=== PATIENT | male | born 1935 | race Caucasian/White ===

== ENCOUNTER 2019-04-18 20:10 | Emergency (ER) | payer MEDICARE, SELFPAY ==
--- NOTE | 2019-04-18 20:04 | DI.CT.S_ITS ---
PROCEDURE: CT HEAD/BRAIN WO CON INDICATIONS: code stroke/TPA CANDIDATE TECHNIQUE: Noncontrast 4.5 mm thick angled axial sections acquired from the foramen magnum to the vertex, with coronal and sagittal reformats. For radiation dose reduction, the following was used: automated exposure control, adjustment of mA and/or kV according to patient size. COMPARISON: None. FINDINGS: Image quality: Excellent. CSF spaces: Basal cisterns are patent. No extra-axial fluid collections. The ventricles are symmetric in size and shape. Brain: No intracranial bleeds or masses. There is cerebral volume loss for age, with resultant ventricular and sulcal prominence. There are periventricular and deep white matter chronic small vessel ischemic changes. There is intracranial internal carotid artery atherosclerosis. Skull and face: Calvarium and visualized facial bones appear intact, without suspicious lesions. Sinuses: Visualized sinuses and mastoids are clear. IMPRESSION: No acute intracranial process. Findings were personally telephoned and discussed with Dr. Berry in the emergency department at 04/18/19 2021 hours. Dictated by: Mikey Barth M.D. on 04/18/2019 at 20:19 Approved by: Mikey Barth M.D. on 04/18/2019 at 20:21
--- NOTE | 2019-04-18 20:07 | DI.CT.S_ITS ---
PROCEDURE: CT ANGIO HEAD AND NECK INDICATIONS: Code Stroke, TPA candidate TECHNIQUE: Pre-contrast 4.5 mm thick sections acquired from the foramen magnum to the vertex. After the administration of intravenous contrast, 1 mm thick sections acquired from the aortic arch through the [place] of [place]. Post-contrast 4.5 mm thick sections then re-acquired from the foramen magnum to the vertex. 3-dimensional jzxgaqs-nisepzcxk-kpahdhyije (MIP) and/or volume rendering reformats were acquired of the central intracranial vasculature and neck separately. COMPARISON: None. FINDINGS: Image quality: Excellent. BRAIN: CSF spaces: Ventricles are normal in size and shape. Basal cisterns are patent. No extra-axial fluid collections. Brain: No midline shift. No intracranial bleeds or masses. Whiting-white matter interface appears intact. Skull and face: Calvarium and facial bones appear intact, without suspicious lesions. Orbits appear normal. Sinuses: Mild right maxillary sinus disease. HEAD CT ANGIOGRAPHY: Anterior circulation: Intracranial internal carotid arteries are normal in size and flow. There is atresia or occlusion of the left A1 segment. The flow within the paired anterior cerebral arteries is normal and symmetric, and supplied by the right A1 segment. The flow within the middle cerebral arteries is normal and symmetric. . 2 mm outpouching is seen at the distal M1 segment, image [id number] series 4 raising possibility of small aneurysm (versus prominent infundibulum) Posterior circulation: There is a dominant left vertebral artery, with hypoplastic/diffusely narrowed appearance of the right vertebral artery. Normal appearing basilar artery. Flow within the posterior cerebral arteries is normal and symmetric. No aneurysms are seen. NECK CT ANGIOGRAPHY: Carotid system: The great vessels demonstrate a bovine anatomy as they arise from the aortic arch. The origins of the common carotid arteries appear patent. The common carotid arteries demonstrate normal caliber and courses. The bifurcation regions are both widely patent. Bilateral carotid calcifications are seen however no definite focal stenosis greater than 50% identified. Posterior circulation: The origins of the vertebral arteries both appear widely patent. The more superior extracranial portions of both vertebral arteries also demonstrate normal courses and calibers. They join to form a normal appearing basilar artery. Soft tissues: Visualized neck soft tissues demonstrate no suspicious abnormalities. Bones: No suspicious bony lesions. Visualized cervical spine appears normally aligned. IMPRESSION: Occluded or atretic left A1 segment. 2 mm outpouching off the distal left M1 segment, suggesting small aneurysm. Bilateral carotid calcifications. No hemodynamically significant ICA stenosis. Dominant left vertebral artery Any quantitative measurements of stenosis were performed using NASCET criteria. Dictated by: Mikey Barth M.D. on 04/18/2019 at 20:33 Approved by: Mikey Barth M.D. on 04/18/2019 at 20:45
[2019-04-18 20:26] LABS: Add Manual Diff / Slide Review NO; Basophils Absolute Auto 0 /uL (0-100); Basophils Percent Auto 0.8 % (0-2); Eosinophils Absolute Auto 200 /uL (0-450); Eosinophils Percent Auto 2.8 % (2-4); Hematocrit 43.4 % (41-53); Hemoglobin 14.7 g/dL (13.5-17.5); Lymphocytes Absolute Auto 1600 /uL (1100-4500); Lymphocytes Percent Auto 27.2 % (25-40); Mean Corpuscular Hemoglobin 31.1 PG (26-34); Mean Corpuscular Volume 91.6 fL (80-100); Monocytes Absolute Auto 400 /uL (0-900); Monocytes Percent Auto 7.2 % (3-14); Neutrophils Absolute Auto 3600 /uL (1500-7000); Platelet Count 147 X10^3/uL (150-400); Red Blood Cell Count 4.73 X10^6/uL (4.5-5.9); Red Cell Distribution Width 14.3 % (11.6-14.8); White Blood Cell Count 5.9 X10^3/uL (4.5-11.0)
--- NOTE | 2019-04-18 20:28 | ED_ITS ---
HPI - General Adult General Chief complaint: Neuro Symptoms/Deficit Stated complaint: Code Stroke Time Seen by Provider: 04/18/19 20:27 Source: patient, family and EMS Mode of arrival: EMS Limitations: no limitations History of Present Illness HPI narrative: Patient is an 83-year-old male. Otherwise healthy. Patient's son states that approximately 6:45-7 o'clock this evening was last known normal. They stated that the patient walked in from outside to have dinner when he had a fairly sudden onset of slurring his words, confusion and difficulty using his utensils. There is some reports that potentially his slurring of his words has improved. Patient without a history of stroke in the past. Takes a baby aspirin but no other medications. Blood sugar greater than 100 EMS prior to arrival. Related Data Allergies Allergy/AdvReac Type Severity Reaction Status Date / Time No Known Drug Allergies Allergy Verified 04/18/19 20:36 Review of Systems Constitutional Reports headache(s) (Right-sided) Eyes Denies diplopia ENT Ears, Nose, Mouth, and Throat: Reports headache(s) (Right-sided) Comments: Slurring of words Cardiovascular Denies chest pain, Denies palpitations and Denies dyspnea Respiratory Denies dyspnea Gastrointestinal Gastrointestinal: Denies abdominal pain, Denies nausea and Denies vomiting Genitourinary Denies dysuria Musculoskeletal Denies myalgias and Denies arthralgias Integumentary/Breasts Denies rash Neurologic Reports behavioral changes and Reports headache(s) (Right-sided) Psychiatric Reports behavioral changes Endocrine Denies palpitations Hematologic/Lymphatic Denies easy bleeding and Denies easy bruising Allergic/Immunologic Denies urticaria [facility] Medical History Patient denies medical problems (Acute) Social History Smoking Status: Never smoker Social History Smoking Status: Never smoker Exam Initial Vital Signs Initial Vital Signs: Vital Signs Temperature 98.0 F 04/18/19 20:36 Pulse Rate 66 04/18/19 20:36 Respiratory Rate 18 04/18/19 20:36 Blood Pressure 170/75 H 04/18/19 20:36 Pulse Oximetry 97 04/18/19 20:36 Const General: comfortable, well developed, well groomed and No acute distress Orientation: alert, awake, oriented to person, oriented to place and oriented to time HENDC Head: normal to inspection and normocephalic Nose: external nose normal Face and sinus: normal facial exam Mouth: oral mucosae normal Eyes Pupils: PERRL EOM: EOM intact bilaterally (However some difficulty looking to the left) Resp Effort & Inspection: normal respiratory effort Auscultation: clear to auscultation bilaterally Cardio Rate: regular rate Rhythm: regular rhythm Pulses: radial pulses present GI Inspection: non-distended Palpation: soft, No firm and No tender Skin Lesions: no lesions Rashes: no rashes Neuro General: alert and awake Cranial Nerves: CN's II-XI intact bilaterally Cognition: normal cognition Motor: muscle tone normal throughout Sensory Exam: other (Decreased sensation to the left) Extrem General: normal to inspection and capillary refill normal Psych Appearance: grossly normal and well kempt Scores GCS Blanca coma scale eye opening: Spontaneous Blanca coma scale verbal response: Orientated Blanca coma scale motor response: Obey commands Blanca coma scale total score: 15 NIH Stroke Scale Level of Conciousness: Alert, keenly responsive Ask month/age: Answers both questions correctly. 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) Best language: No aphasia, normal Dysarthria: Mild to mod,some slurring Extinction or inattention: Visual, tactile, auditory, spacial or personal in attention to stimuli Total NIH Stroke scale score: 7 Course Orders Ordered: ED Orders 04/18/19 20:04 CT head/brain wo con Stat EKG-12 Lead Stat 04/18/19 20:05 Complete Blood Count AUTO DIFF Stat Comprehensive Metabolic Panel Stat Ethanol (ETOH) Stat Lipase Stat Partial Thromboplastin Time Stat Prothrombin Time INR Stat Thyroid Stimulating Hormone Stat Troponin I Stat 04/18/19 20:07 CT angio head and neck Stat Discontinued Medications Alteplase, Recombinant (Activase) 86.8 mg IV NOW ONE Stop: 04/18/19 21:16 Last Admin: 04/18/19 21:10 Dose: 86.8 mg Vital Signs - 8 hr 04/18/19 20:36 04/18/19 21:38 04/18/19 21:47 Temperature 98.0 F Pulse Rate 66 58 L 62 Respiratory Rate 18 20 Blood Pressure 170/75 H Blood Pressure [Left Arm] 132/79 149/75 H Pulse Oximetry 97 96 95 Medical Decision Making Lab Data Lab results reviewed: Yes I reviewed the patient's lab results. Result diagrams: 04/18/19 20:05 04/18/19 20:05 Lab Results 04/18/19 04/18/19 04/18/19 Range/Units 20:05 20:05 20:05 WBC 5.9 (4.5-11.0) X10^3/uL RBC 4.73 (4.5-5.9) X10^6/uL Hgb 14.7 (13.5-17.5) g/dL Hct 43.4 (41-53) % MCV 91.6 (80-100) fL MCH 31.1 (26-34) PG MCHC 34.0 (30-36) % RDW 14.3 (11.6-14.8) % Plt Count 147 L (150-400) X10^3/uL Neut % (Auto) 62.0 (50-75) % Lymph % (Auto) 27.2 (25-40) % [place] % (Auto) 7.2 (3-14) % Eos % (Auto) 2.8 (2-4) % Baso % (Auto) 0.8 (0-2) % Neut # (Auto) 3600 (8585-9570) /uL Lymph # (Auto) 1600 (5860-3904) /uL [place] # (Auto) 400 (0-900) /uL Eos # (Auto) 200 (0-450) /uL Baso # (Auto) 0 (0-100) /uL PT 12.3 (10.1-12.7) SECONDS INR 1.1 (0.9-1.3) APTT 30 (26.4-36.2) SECONDS Sodium 143 (137-145) mmol/L Potassium 4.2 (3.4-5.1) mmol/L Chloride 109 H (98-107) mmol/L Carbon Dioxide 26 (22-32) mmol/L BUN 19 (9-20) mg/dL Creatinine 0.90 (0.66-1.25) mg/dL Estimated GFR > 60.0 (>60) mL/min BUN/Creatinine Ratio 21.1 (6-22) Glucose 124 H (80-110) mg/dL Calcium 9.8 (8.4-10.2) mg/dL Total Bilirubin 1.4 H (0.2-1.3) mg/dL AST 25 (17-59) IU/L ALT 13 L (21-72) IU/L Alkaline Phosphatase 63 (38-126) U/L Troponin I < 0.012 (0.01-0.034) ng/mL Total Protein 7.0 (6.3-8.2) g/dL Albumin 4.2 (3.5-5.0) g/dL Globulin 2.8 (1.7-4.1) g/dL Albumin/Globulin Ratio 1.5 (1.0-2.8) Lipase 118 (23-300) U/L TSH (0.47-4.68) uIU/mL Ethyl Alcohol < 10 mg/dL 04/18/19 Range/Units 20:05 WBC (4.5-11.0) X10^3/uL RBC (4.5-5.9) X10^6/uL Hgb (13.5-17.5) g/dL Hct (41-53) % MCV (80-100) fL MCH (26-34) PG MCHC (30-36) % RDW (11.6-14.8) % Plt Count (150-400) X10^3/uL Neut % (Auto) (50-75) % Lymph % (Auto) (25-40) % [place] % (Auto) (3-14) % Eos % (Auto) (2-4) % Baso % (Auto) (0-2) % Neut # (Auto) (5340-9076) /uL Lymph # (Auto) (1468-5156) /uL [place] # (Auto) (0-900) /uL Eos # (Auto) (0-450) /uL Baso # (Auto) (0-100) /uL PT (10.1-12.7) SECONDS INR (0.9-1.3) APTT (26.4-36.2) SECONDS Sodium (137-145) mmol/L Potassium (3.4-5.1) mmol/L Chloride (98-107) mmol/L Carbon Dioxide (22-32) mmol/L BUN (9-20) mg/dL Creatinine (0.66-1.25) mg/dL Estimated GFR (>60) mL/min BUN/Creatinine Ratio (6-22) Glucose (80-110) mg/dL Calcium (8.4-10.2) mg/dL Total Bilirubin (0.2-1.3) mg/dL AST (17-59) IU/L ALT (21-72) IU/L Alkaline Phosphatase (38-126) U/L Troponin I (0.01-0.034) ng/mL Total Protein (6.3-8.2) g/dL Albumin (3.5-5.0) g/dL Globulin (1.7-4.1) g/dL Albumin/Globulin Ratio (1.0-2.8) Lipase (23-300) U/L TSH 2.05 (0.47-4.68) uIU/mL Ethyl Alcohol mg/dL Imaging Data CT scan - head: Radiologist's impression: [place] [address] CT Scan Report Signed Patient: Yayo Novoa#: [id number] : 4Acct:[id number] Age/Sex: 83 / MDate of Service: 04/18/19 Loc: ED Accession Number: [id number] Procedure: CT head/brain wo con Ordering Provider: Jose Berry D.O. PROCEDURE: CT HEAD/BRAIN WO CON INDICATIONS: code stroke/TPA CANDIDATE TECHNIQUE: Noncontrast 4.5 mm thick angled axial sections acquired from the foramen magnum to the vertex, with coronal and sagittal reformats. For radiation dose reduction, the following was used: automated exposure control, adjustment of mA and/or kV according to patient size. COMPARISON: None. FINDINGS: Image quality: Excellent. CSF spaces: Basal cisterns are patent. No extra-axial fluid collections. The ventricles are symmetric in size and shape. Brain: No intracranial bleeds or masses. There is cerebral volume loss for age, with resultant ventricular and sulcal prominence. There are periventricular and deep white matter chronic small vessel ischemic changes. There is intracranial internal carotid artery atherosclerosis. Skull and face: Calvarium and visualized facial bones appear intact, without suspicious lesions. Sinuses: Visualized sinuses and mastoids are clear. IMPRESSION: No acute intracranial process. Findings were personally telephoned and discussed with Dr. Berry in the emergency department at 04/18/19 2021 hours. Dictated by: Mikey Barth M.D. on 04/18/2019 at 20:19 Approved by: Mikey Barth M.D. on 04/18/2019 at 20:21 CTA head neck: Radiologist's impression: [place] [address] CT Scan Report Signed Patient: Luis NovoaMR#: [id number] : 4Acct:[id number] Age/Sex: 83 / MDate of Service: 04/18/19 Loc: ED Accession Number: [id number] Procedure: CT angio head and neck Ordering Provider: Jose Berry D.O. PROCEDURE: CT ANGIO HEAD AND NECK INDICATIONS: Code Stroke, TPA candidate TECHNIQUE: Pre-contrast 4.5 mm thick sections acquired from the foramen magnum to the vert ex. After the administration of intravenous contrast, 1 mm thick sections acquired from the aortic arch through the [place] of [place]. Post-contrast 4.5 mm thick sections then re- acquired from the foramen magnum to the vertex. 3-dimensional ekqgvyb-jahbqvzih-etthjciaha (MIP) and/or volume rendering reformats were acquired of the central intracranial vasculature and neck separately. COMPARISON: None. FINDINGS: Image quality: Excellent. BRAIN: CSF spaces: Ventricles are normal in size and shape. Basal cisterns are patent. No extra-axial fluid collections. Brain: No midline shift. No intracranial bleeds or masses. Wh[place]-white matter interface appears intact. Skull and face: Calvarium and facial bones appear intact, without suspicious lesions. Orbits appear normal. Sinuses: Mild right maxillary sinus disease. HEAD CT ANGIOGRAPHY: Anterior circulation: Intracranial internal carotid arteries are normal in size and flow. There is atresia or occlusion of the left A1 segment. The flow within the paired anterior cerebral arteries is normal and symmetric, and supplied by the right A1 segment. The flow within the middle cerebral arteries is normal and symmetric. . 2 mm outpouching is seen at the distal M1 segment, image [id number] series 4 raising possibility of small aneurysm (versus prominent infundibulum) Posterior circulation: There is a dominant left vertebral artery, with hypoplastic/diffusely narrowed appearance of the right vertebral artery. Normal appearing basilar artery. Flow within the posterior cerebral arteries is normal and symmetric. No aneurysms are seen. NECK CT ANGIOGRAPHY: Carotid system: The great vessels demonstrate a bovine anatomy as they arise from the aortic arch. The origins of the common carotid arteries appear patent. The common carotid arteries demonstrate normal caliber and courses. The bifurcation regions are both widely patent. Bilateral carotid calcifications are seen however no definite focal stenosis greater than 50% identified. Posterior circulation: The origins of the vertebral arteries both appear widely patent. The more superior extracranial portions of both vertebral arteries also demonstrate normal courses and calibers. They join to form a normal appearing basilar artery. Soft tissues: Visualized neck soft tissues demonstrate no suspicious abnorma lities. Bones: No suspicious bony lesions. Visualized cervical spine appears normally aligned. IMPRESSION: Occluded or atretic left A1 segment. 2 mm outpouching off the distal left M1 segment, suggesting small aneurysm. Bilateral carotid calcifications. No hemodynamically significant ICA stenosis. Dominant left vertebral artery Any quantitative measurements of stenosis were performed using NASCET criteria. Dictated by: Mikey Barth M.D. on 04/18/2019 at 20:33 Approved by: Mikey Barth M.D. on 04/18/2019 at 20:45 ECG Data Attestation: I personally reviewed and interpreted this ECG as follows: Prior ECG tracings: not available for review Interpretation: Sinus rhythm Ventricular rate is 67 First degree AV block the as needed oval 236 milliseconds QRS duration 153 milliseconds Right bundle branch block Left anterior fascicular block Normal QTC No ST T wave changes MDM Narrative Medical decision making narrative: Patient arrived within 3 hours of a window of tPA. Does have a profound left-sided hemineglect. Patient does not have contraindication for tPA. I did discuss the case with with the stroke team at [facility] who reviewed the images. He evaluated the patient through the bedside video teleconference. He discuss risks and benefits with the tPA with the family who expressed understanding and agreement of this medication. Patient's blood pressure is within acceptable range. TPA was started. After review of the CT a doctor Indraman states that patient could be a potential candidate for retrieval. Airlift was initiated. Family informed of transport. Patient is stable for transport. Patient did improve somewhat after the tPA. Critical Care Time Critical Care Time: Yes Total Critical Care Time: 40 Attestation: The high probability of a clinically significant, sudden or life threatening deterioration of the neurologic system(s) required my full and direct attention, intervention and personal management. The aggregate critical care time was40 minutes. This time is in addition to time spent performing reported procedures but includes the following: [] Data Review and interpretation [] Patient assessment and monitoring of vital signs [] Documentation [] Medication orders and management Discharge Plan Departure Patient Disposition: [facility] Clinical Impression: Cerebrovascular accident Qualifiers: CVA mechanism: unspecified Qualified Code(s): I63.9 - Cerebral infarction, unspecified
[2019-04-18 20:34] LABS: INR 1.1 (0.9-1.3); Prothrombin Time 12.3 SECONDS (10.1-12.7)
[2019-04-18 20:36] VITALS: BP 170/75; PULSE 66; RESP 18; TEMP 36.7; O2SAT 97; BMI 28.5
[2019-04-18 20:36] LABS: PTT Partial Thromboplastin Tim 30 SECONDS (26.4-36.2)
[2019-04-18 20:41] LABS: Alanine Aminotransferase 13 IU/L (21-72); Albumin 4.2 g/dL (3.5-5.0); Albumin Globulin Ratio 1.5 (1.0-2.8); Alkaline Phosphatase 63 U/L (38-126); Aspartate Aminotransferase 25 IU/L (17-59); BUN Creatinine Ratio 21.1 (6-22); Bilirubin Total 1.4 mg/dL (0.2-1.3); Blood Urea Nitrogen 19 mg/dL (9-20); Calcium 9.8 mg/dL (8.4-10.2); Carbon Dioxide 26 mmol/L (22-32); Chloride 109 mmol/L (98-107); Estimated Glomerular Filt Rate > 60.0 mL/min (>60); Ethanol (ETOH) < 10 mg/dL; Globulin 2.8 g/dL (1.7-4.1); Glucose 124 mg/dL (80-110); HEMOLYSIS < 15 (0-50); Lipase 118 U/L (23-300); Potassium 4.2 mmol/L (3.4-5.1); Sodium 143 mmol/L (137-145)
[2019-04-18 20:52] LABS: Troponin I < 0.012 ng/mL (0.01-0.034)
--- NOTE | 2019-04-18 21:09 | PC.NURSE ---
per family patient has known left shoulder pain, pt using right hand to assist left arm up, pt then able to hold arm up without difficulty.
[2019-04-18] MEDS: ALTEPLASE 100 MG VIAL 86.8 MG IV (21:10)
[2019-04-18 21:12] LABS: Thyroid Stimulating Hormone 2.05 uIU/mL (0.47-4.68)
[2019-04-18 21:38] VITALS: BP 132/79; PULSE 58; RESP 19; O2SAT 96
[2019-04-18 21:47] VITALS: BP 149/75; PULSE 62; RESP 20; O2SAT 95
[2019-04-18 22:40] VITALS: BP 153/84; PULSE 59; RESP 18; O2SAT 94
== END 2019-04-18 22:43 | disposition short-term general hospital (02) ==
LOC: ED 21:23
PROVIDERS: Emergency Provider Emergency Medicine
DX: I63.9 Cerebral infarction, unspecified (principal)
CPT/HCPCS: 36591; 70450; 70496; 70498; 80053; 80320; 83690; 84443; 84484; 85025; 85610; 85730; 93005; 96374; 99283; 99285; J2997; Q9967

== ENCOUNTER 2019-07-04 10:30 | Outpatient (RCR) | payer MEDICARE, SELFPAY ==
--- NOTE | 2019-05-21 17:49 | ST.OPIE ---
Provider Information Visit Care Team Role Provider Type Marcie Canela MD Attending Provider Physician Primary Care Provider Specialty: Internal Medicine Address: [address] [place] [address], [id number] Email: Speech-Language Pathology Initial Evaluation SECURITY INCIDENT RESPONSE SPECIALIST Language Evaluation Start: 05/21/19 17:11 Freq: Status: Active Protocol: Document 05/16/19 17:11 JAQUELINE (Rec: 05/21/19 17:48 JAQUELINE [email or web address]) Language Evaluation Session Time Visit Start Time 12:30 Visit Stop Time 13:30 Total Visit Minutes 60 Visit Information Visit Number Initial Evaluation Plan of Care Dates 05/16/19 - 08/09/19 Insurance Information Medicare Next Note Type Next Note Type Treatment Note Referral Referring Physician Dr. 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 Initial symptoms included slurring of words, confusion and difficulty using utensils. The pt was at home with his family at the time of onset. Pt was brought to [facility] ED, where tPA was administered. The pt was then transported to [facility] in [place]. Dusty arrived for initial outpatient evaluation with his izdjqcst-[id number]-zom, Ashley. Both Dusty and Ashley provided supplemental case history and stated symptoms have improved but deficits continue to be apparent with left side neglect, WFD, tracking conversation of others, occasional use of language that is inappropriate to the context and/or pragmatically, incorrect syntax (particularly pronoun use), processing speeds, and inhibition. The pt c/o reduced energy levels. Ashley also noted observing mild emotional detatchment. She felt some of his deficits may be impacted his high frequency hearing loss, as well. 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 Both pt and DIL provided supplemental case history. The pt initially deferred to DIL to provide case history but then stated what he recalled when she prompted him to try. He recalled CVA and tests in the hospital (CT, MRI) and expressed difficulty speaking: You'll start and then it gets jumbled up. While provided history, the pt primarily looked/spoke to Ashley, who was sitting to his right, and did not look at the Clinician (at left) unless making a direct response the the Clinician. - Informal Assessment Receptive Language Normal No Expressive Language Normal No Articulation Normal Yes Assessment Findings Following chart review and interview, administration of the [place] Diagnostic Aphasia Examination was initiated and will be completed at the next session. The pt appears to present with mild to moderate expressive and receptive language deficits. Severity will be determined following completion of standardized assessment. The pt does exhibit occasional WFD, errors in syntax ( incorrect gender pronouns, overuse of past verb tense), and worsening of auditory and reading comprehension with increased length and complexity of content. Recommendations Skilled intervention is medically necessary to complete thorought evaluation and to improve the pt's expressive and receptive language skills in order to increase independence and participation in functional ADLs and communication. Formal Assessment Standardized Test [place] Diagnostic Aphasia Examination Administration Initiated Incomplete Results The following scores were obtained today: Fluency: Pharase Length 100% ile; Grammatic form 70%ile Auditory Comprehension: Basic Word Discrimnination 100%ile; Commands 70%ile; Complex Ideational Material 50%ile; Articulation: Articulatory Agility 70%ile; Recitation: Automatized Sequences 100%ile; Repetition: Words 60%ile; Sentences 60%ile; Naming: Responsive Naming 100% ile; [place] Naming Test 90%ile on short form (14/15 words; Long form = 52/60 words); Special Categories 100%ile; Readin%ile in Matching Cases & Scripts, Number Matching, Picture-Word Matching; Oral REading and Oral Sentence Comprehension; Oral Sentence reading 60%ile; Sentence/Paragtraph Comprehension 70%ile. - Receptive Language - Expressive Language - Treatment Goals Short Term Goals 1. The pt will participate in further evaluation of expressive and receptive language skills in order to guide POC. 2. The pt will complete word recall tasks of simple to moderate complexity with 80% accuracy to improve expressive language skills. 3. Using visual orientation tools as needed, the pt will complete scanning tasks with 80% accuracy to reduce left- side neglect, improve reading skills, and increase safety. Additional goals to be determined following completion of assessment. Engine Lathe Set Up Operator Tool Goals 1. Using word recall strategies as needed, the pt will exhibit fewer than 3 uncorrected paraphasias and/or WFD in a 3-minute conversation to improve expressive language skills. 2. The pt will demonstrate left-side attention adequate to complete scanning/reading aloud tasks without use of visual orientation tool and with 80% accuracy in order to improve visuospatial and reading skills and safety. Additional goals to be determined following completion of assessment.
--- NOTE | 2019-05-21 17:54 | ST.OPIE ---
Provider Information Visit Care Team Role Provider Type Marcie Canela MD Attending Provider Physician Primary Care Provider Specialty: Internal Medicine Address: [address] [place] [address], [id number] Email: Speech-Language Pathology Initial Evaluation POOL ATTENDANT Language Evaluation Start: 05/21/19 17:11 Freq: Status: Active Protocol: Document 05/16/19 17:11 JAQUELINE (Rec: 05/21/19 17:48 JAQUELINE [email or web address]) Language Evaluation Session Time Visit Start Time 12:30 Visit Stop Time 13:30 Total Visit Minutes 60 Visit Information Visit Number Initial Evaluation Plan of Care Dates 05/16/19 - 08/09/19 Insurance Information Medicare Next Note Type Next Note Type Treatment Note Referral Referring Physician Dr. 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 Initial symptoms included slurring of words, confusion and difficulty using utensils. The pt was at home with his family at the time of onset. Pt was brought to [facility] ED, where tPA was administered. The pt was then transported to [facility] in [place]. Dusty arrived for initial outpatient evaluation with his [id number], Ashley. Both Dusty and Ashley provided supplemental case history and stated symptoms have improved but deficits continue to be apparent with left side neglect, WFD, tracking conversation of others, occasional use of language that is inappropriate to the context and/or pragmatically, incorrect syntax (particularly pronoun use), processing speeds, and inhibition. The pt c/o reduced energy levels. Ashley also noted observing mild emotional detatchment. She felt some of his deficits may be impacted his high frequency hearing loss, as well. 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 Both pt and DIL provided supplemental case history. The pt initially deferred to DIL to provide case history but then stated what he recalled when she prompted him to try. He recalled CVA and tests in the hospital (CT, MRI) and expressed difficulty speaking: You'll start and then it gets jumbled up. While provided history, the pt primarily looked/spoke to Ashley, who was sitting to his right, and did not look at the Clinician (at left) unless making a direct response the the Clinician. - Informal Assessment Receptive Language Normal No Expressive Language Normal No Articulation Normal Yes Assessment Findings Following chart review and interview, administration of the [place] Diagnostic Aphasia Examination was initiated and will be completed at the next session. The pt appears to present with mild to moderate expressive and receptive language deficits. Severity will be determined following completion of standardized assessment. The pt does exhibit occasional WFD, errors in syntax ( incorrect gender pronouns, overuse of past verb tense), and worsening of auditory and reading comprehension with increased length and complexity of content. Recommendations Skilled intervention is medically necessary to complete thorought evaluation and to improve the pt's expressive and receptive language skills in order to increase independence and participation in functional ADLs and communication. Frequency and Duration: 1x/wk for 12 weeks Formal Assessment Standardized Test [place] Diagnostic Aphasia Examination Administration Initiated Incomplete Results The following scores were obtained today: Fluency: Pharase Length 100% ile; Grammatic form 70%ile Auditory Comprehension: Basic Word Discrimnination 100%ile; Commands 70%ile; Complex Ideational Material 50%ile; Articulation: Articulatory Agility 70%ile; Recitation: Automatized Sequences 100%ile; Repetition: Words 60%ile; Sentences 60%ile; Naming: Responsive Naming 100% ile; [place] Naming Test 90%ile on short form (14/15 words; Long form = 52/60 words); Special Categories 100%ile; Readin%ile in Matching Cases & Scripts, Number Matching, Picture-Word Matching; Oral REading and Oral Sentence Comprehension; Oral Sentence reading 60%ile; Sentence/Paragtraph Comprehension 70%ile. - Receptive Language - Expressive Language - Treatment Goals Short Term Goals 1. The pt will participate in further evaluation of expressive and receptive language skills in order to guide POC. 2. The pt will complete word recall tasks of simple to moderate complexity with 80% accuracy to improve expressive language skills. 3. Using visual orientation tools as needed, the pt will complete scanning tasks with 80% accuracy to reduce left- side neglect, improve reading skills, and increase safety. Additional goals to be determined following completion of assessment. [place] Goals 1. Using word recall strategies as needed, the pt will exhibit fewer than 3 uncorrected paraphasias and/or WFD in a 3-minute conversation to improve expressive language skills. 2. The pt will demonstrate left-side attention adequate to complete scanning/reading aloud tasks without use of visual orientation tool and with 80% accuracy in order to improve visuospatial and reading skills and safety. Additional goals to be determined following completion of assessment.
--- NOTE | 2019-05-29 16:41 | ST.OPTN ---
Care Team Visit Care Team Role Provider Type Marcie Canela MD Attending Provider Physician Primary Care Provider Address: [address] [place] [address], [id number] ACCOUNTS COLLECTOR Treatment Note ACCOUNTS COLLECTOR Treatment Note Start: 05/21/19 17:11 Freq: Status: Active Protocol: Document 05/22/19 15:06 JAQUELINE (Rec: 05/29/19 15:27 JAQUELINE [email or web address]) Speech Pathology Treatment Note Session Time Visit Start Time 10:30 Visit Stop Time 11:25 Total Visit Minutes 55 Visit Information Visit Number 11/10 Plan of Care Dates 05/16/19 - 08/09/19 Insurance Information Medicare Setting Treatment Setting Outpatient Care Visit Type Note Type Treatment Note Next Note Type Next Note Type Treatment Note General Information General Information This 83-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 Initial symptoms included slurring of words, confusion and difficulty using utensils. The pt was at home with his family at the time of onset. Pt was brought to [facility] ED, where tPA was administered. The pt was then transported to [facility] in [place]. Dusty arrived for initial outpatient evaluation with his gimywbwm-ra-kje, Ashley. Both Dusty and Ashley provided supplemental case history and stated symptoms have improved but deficits continue to be apparent with left side neglect, WFD, tracking conversation of others, occasional use of language that is inappropriate to the context and/or pragmatically, incorrect syntax (particularly pronoun use), processing speeds, and inhibition. The pt c/o reduced energy levels. Ashley also noted observing mild emotional detatchment. She felt some of his deficits may be impacted his high frequency hearing loss, as well. Subjective Observations/Patient Presentation Pt arrived early for his appt with son, Eric, accompanying him. 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 Since the stroke , the son has noticed changes in the pt's syntax with frequent pronoun errors or lack of referent, making conversation often confusing. He also reported reduced attention, particularly in conversation as demonstrated by the pt interrupting others' conversations. Changes in relationships has also been significant, in that the pt appears to be pushing loved ones away, and this is of great concern to the family. Eric stated that inhibition is improving and is ~20% from baseline and that the pt's awareness of his deficits is also starting to improve. Chief Complaint(s) Speech Language Cognitive Rehab Expectation/Goals: Patient Goals The pt expects that in time he will return to baseline. Objective Short Term Goals 1. The pt will participate in further evaluation of expressive and receptive language skills in order to guide POC. GOAL MET 2. The pt will complete word recall tasks of simple to moderate complexity with 80% accuracy to improve expressive language skills. 3. Using visual orientation tools as needed, the pt will complete scanning tasks with 80% accuracy to reduce left- side neglect, improve reading skills, and increase safety. 4. The pt will complete syntax tasks of moderate complexity (e.g., scrambled sentences, cloze exercises targeting pronouns, subjects, prepositions, etc.) with 80% accuracy to improve expressive language skills. 5. The pt will participate in assessment of mathematical skills with goals to be determined subsequently. Jail Goals 1. Using word recall strategies as needed, the pt will exhibit fewer than 3 uncorrected paraphasias and/or WFD in a 3-minute conversation to improve expressive language skills. 2. The pt will demonstrate left-side attention adequate to complete scanning/reading aloud tasks without use of visual orientation tool and with 80% accuracy in order to improve visuospatial and reading skills and safety. 3. Given picture stimuli, the pt will produce descriptive sentences orally and in writing with 80% correct syntax to improve expressive language skills and comprehensibility of speech. 4. The pt will complete math problems of moderate complexity (e.g., clock math, measurements, etc.) to increase ability to participate in functional activities and hobbies as per PLOF. Treatment Activities Completed administration of BDAE. Consulted with pt/son for further development of tx goals. Assessment Patient Response to Treatment Fair Rehab Potential Good Impairments Identified Aphasia Cognitive-Linguistic Skills Expressive Language Assessment of Improvement Pt achieved the following scores in BDAE Writing tasks: Form: 70%ile; Letter Choice 21 %ile; Motor Facility 20%ile ( secondary to right shoulder surgery ~20 yrs ago, not impacted by stroke); Primer Words 100%ile; Regular Phonics 100%ile; Common Irregular Words 100%ile; Written Picture Naming 70%ile (misspelling trelis for trellis); and Narrative Writing 75%ile. Narrative writing errors included incorrect pronoun x1, missing pronoun/subject x1, and absent punctuation. Reviewed with Patient Goals Progress Being Made Home Exercise Program Patient/Caregiver Understanding Good
--- NOTE | 2019-05-29 16:51 | ST.OPTN ---
Care Team Visit Care Team Role Provider Type Marcie Canela MD Attending Provider Physician Primary Care Provider Address: [address] [place] [address], [id number] PULPER Treatment Note PULPER Treatment Note Start: 05/21/19 17:11 Freq: Status: Active Protocol: Document 05/29/19 16:41 JAQUELINE (Rec: 05/29/19 16:51 JAQUELINE [email or web address]) Speech Pathology Treatment Note Session Time Visit Start Time 12:30 Visit Stop Time 13:15 Total Visit Minutes 45 Visit Information Visit Number 11/10 Plan of Care Dates 05/16/19 - 08/09/19 Insurance Information Medicare Setting Treatment Setting Outpatient Care Visit Type Note Type Treatment Note Next Note Type Next Note Type Treatment Note General Information General Information This 83-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 Initial symptoms included slurring of words, confusion and difficulty using utensils. The pt was at home with his family at the time of onset. Pt was brought to [facility] ED, where tPA was administered. The pt was then transported to [facility] in [place]. Dusty arrived for initial outpatient evaluation with his fsncallr-dl-cky, Ashley. Both Dusty and Ashley provided supplemental case history and stated symptoms have improved but deficits continue to be apparent with left side neglect, WFD, tracking conversation of others, occasional use of language that is inappropriate to the context and/or pragmatically, incorrect syntax (particularly pronoun use), processing speeds, and inhibition. The pt c/o reduced energy levels. Ashley also noted observing mild emotional detatchment. She felt some of his deficits may be impacted his high frequency hearing loss, as well. Subjective Observations/Patient Presentation Pt arrived 45 min early for his appt unaccompanied. Chief Complaint(s) Speech Language Cognitive Rehab Expectation/Goals: Patient Goals The pt expects that in time he will return to baseline. Objective Short Term Goals 1. The pt will participate in further evaluation of expressive and receptive language skills in order to guide POC. GOAL MET 2. The pt will complete word recall tasks of simple to moderate complexity with 80% accuracy to improve expressive language skills. 3. Using visual orientation tools as needed, the pt will complete scanning tasks with 80% accuracy to reduce left- side neglect, improve reading skills, and increase safety. 4. The pt will complete syntax tasks of moderate complexity (e.g., scrambled sentences, cloze exercises targeting pronouns, subjects, prepositions, etc.) with 80% accuracy to improve expressive language skills. 5. The pt will participate in assessment of mathematical skills with goals to be determined subsequently. Hand Pattern Marker Goals 1. Using word recall strategies as needed, the pt will exhibit fewer than 3 uncorrected paraphasias and/or WFD in a 3-minute conversation to improve expressive language skills. 2. The pt will demonstrate left-side attention adequate to complete scanning/reading aloud tasks without use of visual orientation tool and with 80% accuracy in order to improve visuospatial and reading skills and safety. 3. Given picture stimuli, the pt will produce descriptive sentences orally and in writing with 80% correct syntax to improve expressive language skills and comprehensibility of speech. 4. The pt will complete math problems of moderate complexity (e.g., clock math, measurements, etc.) to increase ability to participate in functional activities and hobbies as per PLOF. Treatment Activities Given scrambled sentences of 4 words, the pt reordered words with 78% accuracy. Given picture scene, the pt described persons in the picture using pronouns without referents in 2/6 opportunities. Initiated assessment of math skills using clock math. The pt performed exercises identifying and calculating time with 77% acc, min cues for understanding of written questions. The pt expressed and exhibited frustration with tasks and lack of understanding of how this is going to help me. He insisted that language and cognitive skills would improve with time and that at this rate, I will be coming here for years. Skilled feedback and education was provided and tasks altered as deemed appropriate by the Clinician to promote pt understanding and motivation to intervention . Assessment Patient Response to Treatment Fair Rehab Potential Good Impairments Identified Aphasia Cognitive-Linguistic Skills Expressive Language Assessment of Improvement The pt exhibited mild deficits in areas targeted in today's session, poor awareness of deficits, and significant frustration with treatment tasks and their purposes. He was not receptive to education and feedback. Recommend increasing complexity of tasks to increase awareness of deficits and tailor treatment to the pt's prior ability levels and interests to promote investment in rehabilitation. Reviewed with Patient Goals Progress Being Made Home Exercise Program Patient/Caregiver Understanding Good Plan Therapeutic Contents Client Education Cognitive-Linguistic Training Expressive Language Training Home Exercise Program Receptive Language Training Written Expression Provided Patient/Caregiver Instruction Home Exercise Program Plan of Care Questions/Concerns
--- NOTE | 2019-06-05 17:06 | ST.OPTN ---
Care Team Visit Care Team Role Provider Type Marcie Canela MD Attending Provider Physician Primary Care Provider Address: [address] [place] [address], [id number] UPHOLSTERY MECHANIC Treatment Note UPHOLSTERY MECHANIC Treatment Note Start: 05/21/19 17:11 Freq: Status: Active Protocol: Document 06/05/19 16:54 JAQUELINE (Rec: 06/05/19 17:05 JAQUELINE [id number]) Speech Pathology Treatment Note Session Time Visit Start Time 10:32 Visit Stop Time 11:35 Total Visit Minutes 63 Visit Information Visit Number 12/11 Plan of Care Dates 05/16/19 - 08/09/19 Insurance Information Medicare Setting Treatment Setting Outpatient Care Visit Type Note Type Treatment Note Next Note Type Next Note Type Treatment Note General Information General Information This 83-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 Initial symptoms included slurring of words, confusion and difficulty using utensils. The pt was at home with his family at the time of onset. Pt was brought to [facility] ED, where tPA was administered. The pt was then transported to [facility] in [place]. Dusty arrived for initial outpatient evaluation with his qbagstgc-sj-yim, Ashley. Both Dusty and Ashley provided supplemental case history and stated symptoms have improved but deficits continue to be apparent with left side neglect, WFD, tracking conversation of others, occasional use of language that is inappropriate to the context and/or pragmatically, incorrect syntax (particularly pronoun use), processing speeds, and inhibition. The pt c/o reduced energy levels. Ashley also noted observing mild emotional detatchment. She felt some of his deficits may be impacted his high frequency hearing loss, as well. Subjective Observations/Patient Presentation Pt arrived on time for his appt. He was unattended; however, his oteqqngn-dq-qvj arrived shortly after the start of the session and stayed throughout. Chief Complaint(s) Speech Language Cognitive Rehab Expectation/Goals: Patient Goals The pt expects that in time he will return to baseline. Objective Short Term Goals 1. The pt will participate in further evaluation of expressive and receptive language skills in order to guide POC. GOAL MET 2. The pt will complete word recall tasks of simple to moderate complexity with 80% accuracy to improve expressive language skills. 3. Using visual orientation tools as needed, the pt will complete scanning tasks with 80% accuracy to reduce left- side neglect, improve reading skills, and increase safety. 4. The pt will complete syntax tasks of moderate complexity (e.g., scrambled sentences, cloze exercises targeting pronouns, subjects, prepositions, etc.) with 80% accuracy to improve expressive language skills. 5. The pt will participate in assessment of mathematical skills with goals to be determined subsequently. Intermodal Dispatcher Goals 1. Using word recall strategies as needed, the pt will exhibit fewer than 3 uncorrected paraphasias and/or WFD in a 3-minute conversation to improve expressive language skills. 2. The pt will demonstrate left-side attention adequate to complete scanning/reading aloud tasks without use of visual orientation tool and with 80% accuracy in order to improve visuospatial and reading skills and safety. 3. Given picture stimuli, the pt will produce descriptive sentences orally and in writing with 80% correct syntax to improve expressive language skills and comprehensibility of speech. 4. The pt will complete math problems of moderate complexity (e.g., clock math, measurements, etc.) to increase ability to participate in functional activities and hobbies as per PLOF. Treatment Activities HEP package was provided to the pt with verbal instructions provided to pt/ family. Instructed pt in mathematical pattern recognition task. He completed with 100% accuracy, min-mod extended processing time, min verbal prompts. Initiated deductive reasoning task requiring mod-max prompts and cues. The pt read clues with 100% accuracy with no evidence of left-side neglect. He required multiple verbal prompts to complete simple tasks such as reading aloud or writing information in the grid. Based on the pt's facial expressions, heavy sighs and comments, this appeared to be more from resisitance to the task than from comprehension deficits. The task was not completed before end of session. The pt complained that it was too difficult and that he would be pushing up daisies before I could finish that. Skilled feedback was provided RE targets and goals of treatment, and his daughter -in-law provided encouragement , also. However, the pt expressed being frustrated and requested tx be reduced to 1x /mo. Family requested every other week, and it was finally decided to f/u in 3 wks. Pt's hvlokjtl-vy-ypn informed that reduced frequency at this time was desired by the family d/t lots of frustration going on these days. Assessment Patient Response to Treatment Fair Rehab Potential Good Impairments Identified Aphasia Cognitive-Linguistic Skills Expressive Language Assessment of Improvement The pt completed numerical reasoning tasks with good accuracy, given extended processing time. He was more engaged with this task than with verbal deductive reasoning, which increased frustration levels. Overall, the pt was resistant to feedback and exhibited minimal motivation to participate in skilled intervention, as demonstrated by signs and comments of frustration regaring specific tasks and cognitive rehabilitation in general. Will reduce frequency of visits and promote HEP with family; F/U in 3 wks. Reviewed with Patient Goals Progress Being Made Home Exercise Program Patient/Caregiver Understanding Good Plan Therapeutic Contents Client Education Cognitive-Linguistic Training Expressive Language Training Home Exercise Program Receptive Language Training Written Expression Provided Patient/Caregiver Instruction Home Exercise Program Plan of Care Questions/Concerns
--- NOTE | 2019-07-04 13:38 | ST.OPTN ---
Visit Care Team Role Provider Type Marcie Canela MD Attending Provider Physician Primary Care Provider Address: [address] [place] [address], [id number] CABIN SERVICE AGENT Treatment Note CABIN SERVICE AGENT Treatment Note Start: 05/21/19 17:11 Freq: Status: Active Protocol: Document 07/04/19 11:23 JAQUELINE (Rec: 07/04/19 11:33 JAQUELINE [email or web address]) Speech Pathology Treatment Note Session Time Visit Start Time 10:30 Visit Stop Time 11:15 Total Visit Minutes 45 Visit Information Visit Number 01/08 Plan of Care Dates 05/16/19 - 08/09/19 Insurance Information Medicare Setting Treatment Setting Outpatient Care Visit Type Note Type Treatment Note Next Note Type Next Note Type Treatment Note General Information General Information This 83-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 Initial symptoms included slurring of words, confusion and difficulty using utensils. The pt was at home with his family at the time of onset. Pt was brought to [facility] ED, where tPA was administered. The pt was then transported to [facility] in [place]. Dusty arrived for initial outpatient evaluation with his cgegyqgz-kl-asg, Ashley. Both Dusty and Ashley provided supplemental case history and stated symptoms have improved but deficits continue to be apparent with left side neglect, WFD, tracking conversation of others, occasional use of language that is inappropriate to the context and/or pragmatically, incorrect syntax (particularly pronoun use), processing speeds, and inhibition. The pt c/o reduced energy levels. Ashley also noted observing mild emotional detatchment. She felt some of his deficits may be impacted his high frequency hearing loss, as well. Subjective Observations/Patient Presentation Pt arrived on time for his appt, unaccompanied. He reported feeling that things seem a lot more normal and that he has re-engaged with activities for which he had lost motivation immediately after the stroke. He reported less frustration, some jumbled thoughts and words, which improved when he slowed down and gave himself time to think. He requested the Clinician call his son, Eric, and see what he thinks. He asked, So you can let me go? but was agreeable to participating in today's tasks and following up again in 3 wks. Chief Complaint(s) Speech,Language,Cognitive Rehab Expectation/Goals: Patient Goals The pt expects that in time he will return to baseline. Objective Short Term Goals 1. The pt will participate in further evaluation of expressive and receptive language skills in order to guide POC. GOAL MET 2. The pt will complete word recall tasks of simple to moderate complexity with 80% accuracy to improve expressive language skills. 3. Using visual orientation tools as needed, the pt will complete scanning tasks with 80% accuracy to reduce left- side neglect, improve reading skills, and increase safety. 4. The pt will complete syntax tasks of moderate complexity (e.g., scrambled sentences, cloze exercises targeting pronouns, subjects, prepositions, etc.) with 80% accuracy to improve expressive language skills. 5. The pt will participate in assessment of mathematical skills with goals to be determined subsequently. Retail Selling Specialist Goals 1. Using word recall strategies as needed, the pt will exhibit fewer than 3 uncorrected paraphasias and/or WFD in a 3-minute conversation to improve expressive language skills. 2. The pt will demonstrate left-side attention adequate to complete scanning/reading aloud tasks without use of visual orientation tool and with 80% accuracy in order to improve visuospatial and reading skills and safety. 3. Given picture stimuli, the pt will produce descriptive sentences orally and in writing with 80% correct syntax to improve expressive language skills and comprehensibility of speech. 4. The pt will complete math problems of moderate complexity (e.g., clock math, measurements, etc.) to increase ability to participate in functional activities and hobbies as per PLOF. Treatment Activities Scanning/Left Neglect: Pt read paragraphs and completed scanning tasks with materials placed left of center with 100 % acc. Basic mathematics: Simple addition, multiplication and division in isolation, 100% acc; simple subtraction in isolation, 90% acc. Mixed mathematics, 58% acc with 1 error self-corrected. Errors tended to be incorrect function (e.g., addition instead of multiplication) resulting from reduced attention vs reduced mathematical skills. Inferential reading with short paragraphs: 60% acc., mnod- max assist. Errors resulting both from reduced attention and reduced inferencing skills . Expressive Language: 1 incorrect word usage (He change (noticed) a big difference, too.) in conversation over course of tx session. Assessment Patient Response to Treatment Fair Rehab Potential Good Impairments Identified Aphasia,Cognitive-Linguistic Skills,Expressive Language Assessment of Improvement The pt demonstrates improved word recall/usage skills with only 1 error observed over the treatment session, and reduced frustration with and resistance to treatment tasks. Improved insight into and acceptance of deficits was also noted, as the pt acknowledged errors (either identified independently or by the clinician) and that reduced concentration/ attention was the primary factor leading to errors. Actual mathematic skills were WFL, as evidenced by increased accuracy when the pt used strategies (instructed by CABIN SERVICE AGENT) to slow down and increase attention to the task. No evidence of left side neglect was observed in structured scanning and unstructured tasks. Reading ability is WFL; however, inferred reading skills are reduced, which may represent deficits in abstract reasoning and/or mental flexibility. HEP tasks targeting inferential reading and attention skills were provided , and the pt was accepting of these. Although he continued to express a desire to be done with speech therapy, he was agreeable to following up in 3 weeks for ongoing assessment and skills training as needed. Reviewed with Patient Goals,Progress Being Made,Home Exercise Program Patient/Caregiver Understanding Good Plan Therapeutic Contents Client Education,Cognitive- Linguistic Training,Expressive Language Training,Home Exercise Program,Receptive Language Training,Written Expression Provided Patient/Caregiver Instruction Home Exercise Program,Plan of Care,Questions/Concerns Therapy Recommendations Continue with Current Program Comment Follow up in 3 wks.
--- NOTE | 2019-09-04 11:07 | ST.OPDS ---
Visit Care Team Role Provider Type Marcie Canela MD Attending Provider Physician Primary Care Provider Address: [address] [place] [address], [id number] GROUND DEFENCE OFFICER Treatment Note GROUND DEFENCE OFFICER Treatment Note Start: 05/21/19 17:11 Freq: Status: Active Protocol: Document 09/04/19 11:01 JAQUELINE (Rec: 09/04/19 11:07 JAQUELINE [email or web address]) Speech Pathology Treatment Note Visit Information Plan of Care Dates 05/16/19 - 08/09/19 Insurance Information Medicare Setting Treatment Setting Outpatient Care Visit Type Note Type Discharge Summary General Information General Information This 83-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 Initial symptoms included slurring of words, confusion and difficulty using utensils. The pt was at home with his family at the time of onset. Pt was brought to [facility] ED, where tPA was administered. The pt was then transported to [facility] in [place]. Dusty arrived for initial outpatient evaluation with his vczoedma-or-zzi, Ashley. Both Dusty and Ashley provided supplemental case history and stated symptoms have improved but deficits continue to be apparent with left side neglect, WFD, tracking conversation of others, occasional use of language that is inappropriate to the context and/or pragmatically, incorrect syntax (particularly pronoun use), processing speeds, and inhibition. The pt c/o reduced energy levels. Ashley also noted observing mild emotional detatchment. She felt some of his deficits may be impacted his high frequency hearing loss, as well. Subjective Observations/Patient Presentation Pt was last seen 07/04/19. One appointment since then was cancelled by the pt/family. Over course of treatment, the pt made progress toward goals and exhibited improvement in skills; however, not all goals were met. The pt will be discharged from skilled services at this time. Objective Short Term Goals 1. The pt will participate in further evaluation of expressive and receptive language skills in order to guide POC. GOAL MET 2. The pt will complete word recall tasks of simple to moderate complexity with 80% accuracy to improve expressive language skills. GOAL NOT MET 3. Using visual orientation tools as needed, the pt will complete scanning tasks with 80% accuracy to reduce left- side neglect, improve reading skills, and increase safety. GOAL NOT MET 4. The pt will complete syntax tasks of moderate complexity (e.g., scrambled sentences, cloze exercises targeting pronouns, subjects, prepositions, etc.) with 80% accuracy to improve expressive language skills. GOAL NOT MET 5. The pt will participate in assessment of mathematical skills with goals to be determined subsequently. ASSESSMENT COMPLETED. Head Setter Goals 1. Using word recall strategies as needed, the pt will exhibit fewer than 3 uncorrected paraphasias and/or WFD in a 3-minute conversation to improve expressive language skills. GOAL MET 2. The pt will demonstrate left-side attention adequate to complete scanning/reading aloud tasks without use of visual orientation tool and with 80% accuracy in order to improve visuospatial and reading skills and safety. GOAL NOT MET 3. Given picture stimuli, the pt will produce descriptive sentences orally and in writing with 80% correct syntax to improve expressive language skills and comprehensibility of speech. GOAL NOT MET 4. The pt will complete math problems of moderate complexity (e.g., clock math, measurements, etc.) to increase ability to participate in functional activities and hobbies as per PLOF. GOAL NOT MET Plan Therapy Recommendations Discharge from Speech Therapy Reason for Discharge Pt cancelled last appt and did not schedule further.
== END 2019-07-04 11:30 ==
LOC: SP 10:30
PROVIDERS: PCP Internal Medicine; Visit Provider Internal Medicine
DX: I63.9 Cerebral infarction, unspecified (principal)
CPT/HCPCS: 92507; 92523

== ENCOUNTER → 2019-07-31 06:54 | Outpatient (CLI) | payer MEDICARE, SELFPAY ==
[2019-07-31 09:06] LABS: Alanine Aminotransferase 19 IU/L (21-72); Aspartate Aminotransferase 27 IU/L (17-59); BUN Creatinine Ratio 23.8 (6-22); Blood Urea Nitrogen 19 mg/dL (9-20); Calcium 9.3 mg/dL (8.4-10.2); Carbon Dioxide 27 mmol/L (22-32); Chloride 108 mmol/L (98-107); Cholesterol 118 mg/dL (140-199); Estimated Glomerular Filt Rate > 60.0 mL/min (>60); Glucose 122 mg/dL (80-110); HDL Cholesterol 39 mg/dL (40-60); HEMOLYSIS < 15 (0-50); LDL Cholesterol Calculated 69 mg/dL (<100); Potassium 4.8 mmol/L (3.4-5.1); Sodium 143 mmol/L (137-145); Triglycerides 49 mg/dL (35-150)
[2019-07-31 09:32] LABS: Prostate Specific Antigen 2.66 ng/mL (0.10-4.00)
== END ==
PROVIDERS: PCP Internal Medicine; Visit Provider Internal Medicine
DX: I10 Essential (primary) hypertension (principal); E78.5 Hyperlipidemia, unspecified; Z12.5 Encounter for screening for malignant neoplasm of prostate
CPT/HCPCS: 36415; 80048; 80061; 84153; 84450; 84460; G0103

== ENCOUNTER → 2019-10-02 11:03 | Outpatient (CLI) | payer MEDICARE, SELFPAY ==
[2019-10-02 12:42] LABS: TSH w/ Reflex to FT4 1.74 uIU/mL (0.47-4.68)
[2019-10-02 13:13] LABS: Folate 7.8 ng/mL (2.76-20.0); Vitamin B12 489 pg/mL (239-931)
== END ==
PROVIDERS: PCP Internal Medicine; Visit Provider Psychiatry & Neurology Neurology
DX: R53.83 Other fatigue (principal)
CPT/HCPCS: 36415; 82607; 82746; 84443

== ENCOUNTER → 2019-10-26 08:32 | Outpatient (CLI) | payer MEDICARE, SELFPAY ==
[2019-10-26 09:26] LABS: Hemoglobin A1C% w Est Avg Glu 5.7 % (4.0-6.0)
[2019-10-26 09:37] LABS: Glucose 126 mg/dL (80-110)
== END ==
PROVIDERS: PCP Internal Medicine; Visit Provider Internal Medicine
DX: R73.01 Impaired fasting glucose (principal)
CPT/HCPCS: 36415; 82947; 83036

== ENCOUNTER → 2019-11-24 14:09 | Outpatient (CLI) | payer MEDICARE, SELFPAY ==
--- NOTE | 2019-11-24 15:56 | PM.TREADMILL ---
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 Impression: Near max effort ETT 05:51 min with good tolerance for age. Stress ECG showed sinus tach to [address] segment depressions or elevations and no cardiac ischemic symptoms. No increase in conduction delays or bundle blocks. Normal HR and BP responses to exercise. Max BP 170/70. His PVCs became more freq. and there were couplets but no sustained arrhyth. No symptoms of claudication. Nuclear imaging is pending. Todd Alvarado PA-C Please note: Actual ECG tracings can be found in the PACS system.
--- NOTE | 2019-11-27 18:09 | DI.NM.S_ITS ---
DATE OF SERVICE: 11/24/2019 PROCEDURE: Exercise perfusion study. INDICATIONS: Frequent PVCs, CVA, coronary artery disease with history of LAD and RCA stent in 2006 with underlying myocardial infarction, PVCs burden about 20%. RADIOPHARMACEUTICAL: 25.2 millicuries of technetium-99m Myoview IV was injected at stress and 25.7 millicuries technetium-99m Myoview IV was injected at rest. FINDINGS: CARDIAC STRESS:: The patient underwent exercise perfusion study under the supervision of the attending staff. He walked on Librado protocol for 5 minutes 51 seconds and achieved 102 percent of target heart rate with normal blood pressure response. No chest pain or anginal symptoms. The patient felt fatigued. There was normal blood pressure response. Baseline EKG revealed sinus rhythm with first-degree AV block, right bundle branch block and left anterior fascicular block as well as frequent PVCs. PVCs got suppressed during exercise, however, reappeared in recovery. There were occasional ventricular couplets, as well. Mostly monomorphic PVCs. No obvious ventricular tachycardia is seen. Occasional PACs seen, as well. RAW DATA:: There was increased subdiaphragmatic activity. GATED STUDY:: The stress and resting LV ejection fraction is 49 percent with severely hypokinetic mid to distal anterior wall, apex and distal septum. Resting end-diastolic volume 207 mL suggestive of dilated left ventricle. TID ratio is 0.93, which is within normal limits. The lung-heart ratio is 0.37 ,which is within normal limits. MYOCARDIAL PERFUSION:: Stress supine, resting supine and stress prone images were compared to each other. It appears to be that the patient has predominantly fixed jqymnvqz-sk-duckt size, severely decreased perfusion of the njb-jq-ourrxz anterior wall, entire apex, mid to distal anterior septum, as well as basal inferior wall. There is no significant reversible ischemia. Summed rest score is about 18 and summed stress score is 19. Upon visual inspection, I do not see any significant reversible ischemia. CONCLUSION: This is an abnormal myocardial perfusion study consistent with moderate to large size, severe infarction of mid to distal anterior wall, apex, mgo-ci-qjqqzm anterior septum, as well as basal inferior wall without any significant reversible ischemia. It looks like patient has infarction involving proximal LAD as well as infarcts in the right coronary artery territory. This is an abnormal myocardial perfusion study. Dusty Novoa - PEGGY/sylvester/twin doc#: [id number]/job#: [id number] dd: 11/27/2019 13:08:00 dt: 11/27/2019 17:55:00 DICTATING MD/COPIES TO: Erin Poon MD COPIES MNE: WM;
== END ==
PROVIDERS: Family Provider Internal Medicine; PCP Internal Medicine; Visit Provider Internal Medicine Cardiovascular Disease
DX: I49.3 Ventricular premature depolarization (principal); I45.2 Bifascicular block; R94.39 Abnormal result of other cardiovascular function study; I63.9 Cerebral infarction, unspecified; I25.10 Atherosclerotic heart disease of native coronary artery without angina pectoris; I25.2 Old myocardial infarction; Z95.5 Presence of coronary angioplasty implant and graft
CPT/HCPCS: 78452; 93017; A9502

== ENCOUNTER → 2020-09-04 07:11 | Outpatient (CLI) | payer MEDICARE, SELFPAY ==
[2020-09-04 07:57] LABS: Alanine Aminotransferase 12 IU/L (<50); Albumin 3.8 g/dL (3.5-5.0); Albumin Globulin Ratio 1.4 (1.0-2.8); Alkaline Phosphatase 60 U/L (38-126); Aspartate Aminotransferase 24 IU/L (17-59); BUN Creatinine Ratio 20.4 (6-22); Bilirubin Total 1.7 mg/dL (0.2-1.3); Blood Urea Nitrogen 19 mg/dL (9-20); Calcium 8.8 mg/dL (8.4-10.2); Carbon Dioxide 29 mmol/L (22-32); Chloride 106 mmol/L (98-107); Cholesterol 129 mg/dL (140-199); Estimated Glomerular Filt Rate > 60.0 mL/min (>60); Globulin 2.8 g/dL (1.7-4.1); Glucose 120 mg/dL (80-110); HDL Cholesterol 40 mg/dL (40-60); HEMOLYSIS < 15 (0-50); LDL Cholesterol Calculated 78 mg/dL (<100); Potassium 4.8 mmol/L (3.4-5.1); Sodium 137 mmol/L (137-145); Total Protein 6.6 g/dL (6.3-8.2); Triglycerides 55 mg/dL (35-150)
== END ==
PROVIDERS: Family Provider Internal Medicine; PCP Internal Medicine; Referring Provider Internal Medicine; Visit Provider Internal Medicine
DX: E78.5 Hyperlipidemia, unspecified (principal); I25.118 Atherosclerotic heart disease of native coronary artery with other forms of angina pectoris
CPT/HCPCS: 36415; 80053; 80061

== ENCOUNTER 2021-09-18 23:05 | Observation (INO) | payer MEDICARE, SELFPAY ==
[2021-09-18] VITALS (11 sets, daily range): BP systolic 98–176; BP diastolic 55–85; PULSE 44–58; RESP 8–17; TEMP 36.5; O2SAT 93–97; BMI 25.7
--- NOTE | 2021-09-18 23:14 | DI.RAD.S_ITS ---
PROCEDURE: XR CHEST 1V INDICATIONS: chest pain TECHNIQUE: One view of the chest was acquired. COMPARISON: [facility], , CHEST 1 VIEW, 12/26/2016, 10:18. FINDINGS: Surgical changes and devices: None. Lungs and pleura: Lungs are clear. No pleural effusions or pneumothorax. Mediastinum: Mediastinal contours appear normal. Heart size is normal. Bones and chest wall: No suspicious bony lesions. Overlying soft tissues appear unremarkable. IMPRESSION: No acute cardiopulmonary disease. Dictated by: Michael Valentino M.D. on 09/18/2021 at 23:37 Approved by: Michael Valentino M.D. on 09/18/2021 at 23:37
--- NOTE | 2021-09-18 23:16 | ED.CHESTPAIN ---
HPI - Chest Pain General Chief Complaint: Chest Pain Stated Complaint: chest heaviness Time Seen by Provider: 09/18/21 23:13 History of Present Illness HPI narrative: 85-year-old male nonsmoker with history of coronary artery disease and prior stents presents with chest pressure that started about an hour prior to his arrival. It was retrosternal in nature and he denies any obvious provocation, palliation or radiation. He denies associated symptoms such as dizziness, weakness or lightheadedness. He has had no shortness of breath, nausea, vomiting or unexplained diaphoresis. He states that he has not had any count of provocative testing or cardiac evaluation in quite a few years. He states that earlier this year he was having chest pain when walking up hills while mowing his lawn and his liquor merchant put him on isosorbide and that seemed to do the trick. He denies any exercise intolerance over the past few weeks or months. He came in and his pain had been present for about 1 hour. He states that at its most intense it was a 3 or 4 not his arrival he was a 2 or 3. Related Data Home Medications Medication Instructions Recorded Confirmed [ASPIRIN] 81 mg PO QDAY #0 12/08/12 [allery medication] #0 12/26/16 Allergies Allergy/AdvReac Type Severity Reaction Status Date / Time No Known Drug Allergies Allergy Verified 04/19/19 08:29 Review of Systems Review of Systems Narrative: GENERAL: Denies chills, fatigue, malaise, fever, sweats. HEENT: Denies sinus pain, ear pain, sore throat, difficulty swallowing, dizziness. RESPIRATORY: Denies dyspnea, cough, wheezing, hemoptysis, sputum. CARDIOVASCULAR: See HPI, GASTROINTESTINAL: Denies nausea, vomiting, abdominal pain, diarrhea, constipation, melena. : Denies dysuria, frequency, incontinence, hematuria, urinary retention. MUSCULOSKELETAL: denies weakness, joint pain, or bony pain SKIN: Denies rash, skin lesions, or other NEUROLOGIC: Denies weakness, headache, numbness, change in speech, confusion, seizures, incoordination. PSYCHIATRIC: No concerning psychosocial issues. 12 point review of systems is negative except for those stated above Patient History Medical History Patient denies medical problems Social History Smoking Status: Never smoker Smoking Status: Never smoker Substance Use Type: does not use Exam Narrative Exam Narrative: GENERAL: [85] year old patient appears stated age. Well-developed patient, in mild distress. HEAD: Atraumatic. Normocephalic. EYES: Pupils equal round and reactive. Extraocular motions intact. No scleral icterus. No injection or drainage. ENT: Nose without bleeding, purulent drainage. Throat without erythema, tonsillar hypertrophy or exudate. Airway patent. NECK: Trachea midline. Non tender CARDIOVASCULAR: Regular rate and rhythm without murmurs, gallops, or rubs. RESPIRATORY: Clear to auscultation. Breath sounds equal bilaterally. No wheezes, rales, or rhonchi. GASTROINTESTINAL: Abdomen soft, non-tender, nondistended. EXTREMITIES: No edema or joint tenderness. BACK: Nontender without deformity or crepitance. No flank tenderness. NEURO: AOx3. 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 It looks like patient has infarction involving proximal LAD as well as infarcts in the right coronary artery territory. This is an abnormal myocardial perfusion study Orders Ordered: ED Orders 09/18/21 23:11 EKG-12 Lead Stat 09/18/21 23:14 XR chest 1V Stat 09/18/21 23:15 Complete Blood Count AUTO DIFF Stat Comprehensive Metabolic Panel Stat Lipase Stat Troponin & CK Cardiac Panel Stat 09/19/21 00:52 EKG-12 Lead Routine 09/19/21 01:24 Troponin & CK Cardiac Panel Stat Acetaminophen (Acetaminophen 325 Mg Tablet) 650 mg PO Q6HR PRN PRN Reason: Fever/Mild Pain (1-3) Aspirin (Aspirin Ec 81 Mg Tablet) 81 mg PO DAILY RAFA Bisacodyl (Bisacodyl 10 Mg Supp) 10 mg [place] DAILY PRN PRN Reason: Constipation Docusate Sodium (Docusate 100 Mg Capsule) 100 mg PO BID RAFA Enoxaparin Sodium (Enoxaparin 40 Mg/0.4 Ml Syringe) 40 mg SUBCUT DAILY [facility] Dextrose/Sodium Chloride (Dextrose 5%-0.45% Ns) 1,000 mls @ 100 mls/hr IV CONT [facility] Magnesium Hydroxide (Magnesium Hydroxide 30 Ml Udc) 30 ml PO DAILY PRN PRN Reason: Constipation Morphine Sulfate (Morphine 2 Mg/Ml Inj) 2 mg IV Q4HR PRN PRN Reason: Pain, Moderate (4-6) Morphine Sulfate (Morphine 2 Mg/Ml Inj) 2 mg IV Q5MIN PRN PRN Reason: Chest Pain Naloxone HCl (Naloxone 0.4 Mg/Ml Vial) 0.2 mg IV Q2MIN PRN PRN Reason: Opiate Reversal Nitroglycerin (Nitroglycerin 0.4 Mg Sl Tab) 0.4 mg SL [id number] PRN PRN Reason: Chest Pain Last Admin: 09/18/21 23:25 Dose: 0.4 mg Documented by: LAURIE Nitroglycerin (Nitroglycerin 0.4 Mg Sl Tab) 0.4 mg SL [id number] PRN PRN Reason: Chest Pain Ondansetron HCl (Ondansetron 4 Mg/2 Ml Inj) 4 mg IV Q8HR PRN PRN Reason: Nausea And Vomiting Sennosides (Sennosides 8.6 Mg Tablet) 17.2 mg PO BEDTIME [facility] Discontinued Medications Aspirin (Aspirin 81 Mg Chew Tab) 324 mg PO NOW ONE Stop: 09/18/21 23:14 Last Admin: 09/18/21 23:24 Dose: 324 mg Documented by: LAURIE Sodium Chloride (Normal Saline 0.9%) 1,000 mls @ 150 mls/hr IV CONT [facility] Last Infusion: 09/19/21 06:16 Dose: 150 mls/hr Documented by: Admin: 09/18/21 23:24 Dose: 150 mls/hr Documented by: LAURIE Reevaluation(s) Reevaluation #1: Patient remains completely chest pain-free after nitro. Reevaluation #2: Patient able to ambulate through the department without any exertional chest pain Reevaluation #3: Patient is now on comfortable staying without taking care of some arrangements at home. His is bedbound and he left things unorganized at home. He does have friends and family that can come and help him later but he refuses to call them at this hour. We had extensive discussion regarding the risks and benefits and my concern of him leaving including the fact that he has a very concerning history and presentation for evolving cardiac disease. He understands that without further evaluation and potential treatment he could have a very bad outcome which could lead to either permanent disability or even . He states he understands this risk and still needs to go home to take care of some things at the home. He states that he understands how important this evaluation is and he will return a bit later. Consultations Consultation #1: Discussed with Cardiology at [facility]. We have reviewed the patient's case including history, physical, initial presentation, labs EKGs, prior nuclear stress tests and he recommends patient be admitted at our facility to receive an echocardiogram and stress test. Unless the patient develops exertional symptoms there is no indication for transfer. Vital Signs Vital signs: Vital Signs - 8 hr 09/18/21 23:30 09/18/21 23:31 09/18/21 23:35 Pulse Rate 56 L 58 L 54 L Respiratory Rate 12 13 11 L Blood Pressure 98/55 L 113/58 L Pulse Oximetry 93 93 93 09/18/21 23:40 09/18/21 23:45 09/18/21 23:48 Pulse Rate 52 L 49 L 45 L Respiratory Rate 11 L 10 L 8 L Blood Pressure 110/60 115/58 L 120/59 L Pulse Oximetry 94 95 95 09/18/21 23:52 09/18/21 23:56 09/19/21 00:00 Pulse Rate 48 L 44 L 47 L Respiratory Rate 9 L 8 L 8 L Blood Pressure 118/65 111/60 124/61 Pulse Oximetry 95 96 95 09/19/21 00:04 09/19/21 00:08 09/19/21 00:12 Pulse Rate 45 L 46 L 47 L Respiratory Rate 8 L 10 L 7 L Blood Pressure 117/58 L 121/66 119/67 Pulse Oximetry 95 95 96 09/19/21 00:16 09/19/21 00:22 09/19/21 00:24 Pulse Rate 47 L 49 L 47 L Respiratory Rate 10 L 20 11 L Blood Pressure 120/63 125/60 118/59 L Pulse Oximetry 96 95 96 09/19/21 00:28 09/19/21 00:30 09/19/21 00:32 Pulse Rate 47 L 49 L 47 L Respiratory Rate 6 L 12 11 L Blood Pressure 123/64 114/63 Pulse Oximetry 97 94 95 09/19/21 00:36 09/19/21 00:40 09/19/21 00:44 Pulse Rate 49 L 41 L 49 L Respiratory Rate 11 L 12 25 H Blood Pressure 114/63 114/64 131/74 Pulse Oximetry 96 95 95 09/19/21 00:48 09/19/21 01:00 09/19/21 01:30 Pulse Rate 50 L 45 L 43 L Respiratory Rate 22 14 15 Blood Pressure 154/74 H 138/66 130/63 Pulse Oximetry 96 95 97 09/19/21 02:00 09/19/21 02:30 Pulse Rate 44 L 48 L Respiratory Rate 13 15 Blood Pressure 132/63 144/68 H Pulse Oximetry 95 99 MDM - Chest Pain Lab Data Result diagrams: 09/18/21 23:15 09/18/21 23:15 Labs: Lab Results 09/18/21 09/18/21 09/19/21 Range/Units 23:15 23:15 01:24 WBC 5.7 (4.5-11.0) X10^3/uL RBC 4.49 L (4.5-5.9) X10^6/uL Hgb 13.6 (13.5-17.5) g/dL Hct 39.5 L (41-53) % MCV 88.1 (80-100) fL MCH 30.4 (26-34) PG MCHC 34.5 (30-36) % RDW 15.6 H (11.6-14.8) % Plt Count 156 (150-400) X10^3/uL Neut % (Auto) 53.7 (50-75) % Lymph % (Auto) 31.4 (25-40) % [place] % (Auto) 9.5 (3-14) % Eos % (Auto) 4.3 H (2-4) % Baso % (Auto) 1.1 (0-2) % Neut # (Auto) 3100 (7636-6465) /uL Lymph # (Auto) 1800 (4930-3382) /uL [place] # (Auto) 500 (0-900) /uL Eos # (Auto) 200 (0-450) /uL Baso # (Auto) 100 (0-100) /uL RBC Morphology See below Anisocytosis 1+ H Schistocytes 1+ H Sodium 140 (137-145) mmol/L Potassium 4.4 (3.4-5.1) mmol/L Chloride 107 (98-107) mmol/L Carbon Dioxide 26 (22-32) mmol/L BUN 23 H (9-20) mg/dL Creatinine 1.30 H (0.66-1.25) mg/dL Estimated GFR 52.3 L (>60) mL/min BUN/Creatinine Ratio 17.7 (6-22) Glucose 128 H (80-110) mg/dL Calcium 9.8 (8.4-10.2) mg/dL Total Bilirubin 1.2 (0.2-1.3) mg/dL AST 24 (17-59) IU/L ALT 16 (<50) IU/L Alkaline Phosphatase 47 (38-126) U/L Total Creatine Kinase 73 64 (55-170) U/L CK-MB (CK-2) TNP TNP CK-MB (CK-2) Rel Index TNP TNP Troponin I < 0.012 < 0.012 (0.01-0.034) ng/mL Total Protein 6.7 (6.3-8.2) g/dL Albumin 4.0 (3.5-5.0) g/dL Globulin 2.7 (1.7-4.1) g/dL Albumin/Globulin Ratio 1.5 (1.0-2.8) Lipase 189 (23-300) U/L Imaging Data Chest x-ray: Radiologist's Impression: Launch?[address] [address] XRay Report Signed Patient: Dusty Novoa MR#: [id number] : 1935 Acct:[id number] Age/Sex: 85 / M Date of Service: 09/18/21 Loc: ED Accession Number: [id number] ?? Procedure: XR chest 1V Ordering Provider: Darren Solis D.O. PROCEDURE:? XR CHEST 1V ? INDICATIONS:? chest pain ? TECHNIQUE:? One view of the chest was acquired.? ? COMPARISON:[facility], CHEST 1 VIEW, 12/26/2016, 10:18. ? FINDINGS:? ? Surgical changes and devices:? None.? ? Lungs and pleura:? Lungs are clear.? No pleural effusions or pneumothorax.? ? Mediastinum:? Mediastinal contours appear normal.? Heart size is normal.? ? Bones and chest wall:? No suspicious bony lesions.? Overlying soft tissues appear unremarkable.? ? IMPRESSION:? No acute cardiopulmonary disease. ? ? ? Dictated by: Michael Valentino M.D. on 09/18/2021 at 23:37 ? ? Approved by: Michael Valentino M.D. on 09/18/2021 at 23:37 ? 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
[2021-09-18] MEDS: SODIUM CHLORIDE 0.9% 1,000 ML 150 ML IV (23:24)
[2021-09-18] MEDS: ASPIRIN 81 MG CHEW TAB 324 MG PO (23:24)
[2021-09-18] MEDS: NITROGLYCERIN 0.4 MG SL TAB SL (23:25)
[2021-09-18 23:29] LABS: Basophils Absolute Auto 100 /uL (0-100); Basophils Percent Auto 1.1 % (0-2); Eosinophils Absolute Auto 200 /uL (0-450); Eosinophils Percent Auto 4.3 % (2-4); Hematocrit 39.5 % (41-53); Hemoglobin 13.6 g/dL (13.5-17.5); Lymphocytes Absolute Auto 1800 /uL (1100-4500); Lymphocytes Percent Auto 31.4 % (25-40); Mean Corpuscular HGB Conc 34.5 % (30-36); Mean Corpuscular Hemoglobin 30.4 PG (26-34); Mean Corpuscular Volume 88.1 fL (80-100); Monocytes Absolute Auto 500 /uL (0-900); Monocytes Percent Auto 9.5 % (3-14); Neutrophils Absolute Auto 3100 /uL (1500-7000); Neutrophils Percent Auto 53.7 % (50-75); Platelet Count 156 X10^3/uL (150-400); Red Blood Cell Count 4.49 X10^6/uL (4.5-5.9); Red Cell Distribution Width 15.6 % (11.6-14.8); White Blood Cell Count 5.7 X10^3/uL (4.5-11.0)
[2021-09-18 23:30] LABS: Add Manual Diff / Slide Review SLIDE REVIEW
[2021-09-19] VITALS (45 sets, daily range): BP systolic 114–166; BP diastolic 58–78; PULSE 40–60; RESP 6–25; TEMP 35.9–36.5; O2SAT 94–99; BMI 25.7
--- NOTE | 2021-09-19 | DI.ECHO.S_ITS ---
[facility] +---------+ : : [address] : : : : [place], : : : : [place] [address] : : : : Phone: [phone] [facility]-0169 Echocardiogram Report + + :Name: BRITTNEE ROBERSON Study Date: 09/19/2021 Height: 72 in : :[facility] ReadingLocation: Weight: 190 lb : : Gender: Male BSA: 2.1 m2 : :: 1935 Age: 85 yrs BP: 141/67 mmHg: :Reason For Study: Chest pain : : Performed By: Lam Saldaña : :Referring: SANJANA MASON : + + Interpretation Summary The ejection fraction is estimated to be 30-35%. Anterior and anteroseptal hypokinesis. [place] is akinetic with small area of dyskinesis. A small inferoapical aneurysm is suspected, consider cardiac MRI The right ventricle is mildly dilated. There is mild to moderate mitral regurgitation. Procedure: A two-dimensional transthoracic echocardiogram with color flow and Doppler was performed. The study quality was technically difficult. There is no prior echocardiogram noted for this patient. EKG difficult to obtain. The patient was in normal sinus rhythm during the exam. Left Ventricle: The left ventricle is normal in size and wall thickness. The ejection fraction is estimated to be 30-35%. There is a mild dyssynchronous contraction pattern, consistent with a conduction abnormality. Anterior and anteroseptal hypokinesis. [place] is akinetic with small area of dyskinesis. A small inferoapical aneurysm is suspected, consider cardiac MRI. Right Ventricle: The right ventricle is mildly dilated. The right ventricular systolic function is normal. Atria: The left atrium is moderately dilated. Right atrial size is normal. There is no Doppler evidence for an interatrial shunt. Mitral Valve: The mitral valve is normal. There is mild to moderate mitral regurgitation. Aortic Valve: The aortic valve is trileaflet. The aortic valve opens well. The aortic valve is mildly calcified. There is trace aortic regurgitation. Tricuspid Valve: The tricuspid valve is normal. There is mild tricuspid regurgitation. Pulmonary artery pressures cannot be estimated because of the lack of a measurable TR jet velocity. Pulmonic Valve: The pulmonic valve leaflets are thin and pliable; valve motion is normal. There is mild pulmonic regurgitation. Great Vessels: The aortic root is borderline dilated. The ascending aorta is mildly enlarged. The aortic arch could not be visualized. The inferior vena cava was not well visualized. Pericardium/ Pleura There is no pericardial effusion. There is an anterior echo-free space consistent with a fat pad. There is no pleural effusion. MMode/2D Measurements & Calculations LVIDd: 4.3 cm LVOT diam: 2.3 cm LVIDs: 3.3 cm Ao root diam: 3.6 cm IVSd: 0.75 cm asc Aorta Diam: 3.8 cm LVPWd: 0.80 cm LV rico. diameter/BSA (cm/m^2): 2.1 LV sys. diameter/BSA (cm/m^2): 1.6 FS: 23.4 % LA A2 area: 27.4 cm2 RA long axis: 5.8 cm LA A4 area: 22.7 cm2 RA area: 15.3 cm2 LA length (vol): 5.9 cm RA vol: 34.1 ml LA vol: 89.1 ml RA : 16.4 ml/m2 LA vol index: 42.8 ml/m2 TAPSE: 2.0 cm Doppler Measurements & Calculations Ao V2 max: 105.1 cm/sec LVOT Max Prashant: 76.1 cm/sec Ao V2 mean: 75.0 cm/sec LV V1 max P.3 mmHg Ao V2 VTI: 23.3 cm LV V1 VTI: 18.2 cm Ao max P.4 mmHg Ao mean P.4 mmHg HAYDEN(I,D): 3.1 cm2 MV E max prashant: 61.0 cm/sec HAYDEN(V,D): 2.9 cm2 MV A max prashant: 64.8 cm/sec HAYDEN indexed to BSA (cm^2/m^2): 1.5 MV E/A: 0.94 sev ratio: 0.78 Med Peak E' Prashant: 4.5 cm/sec E/E' med: 13.6 Lat Peak E' Prashant: 6.1 cm/sec E/E' lat: 10.1 E/e' average: 11.8 MV dec time: 0.24 sec PA V2 max: 70.7 cm/sec PA V2 mean: 56.2 cm/sec PA mean P.3 mmHg PA pr(Accel): 10.5 mmHg SV(LVOT): 73.3 ml Reading Physician:02:03 PM
--- NOTE | 2021-09-19 | DI.NM.S_ITS ---
PROCEDURE: NM RICK PERF SPECT REST & STR Rest and exercise myocardial perfusion SPECT with gated imaging and ejection fraction RADIOPHARMACEUTICAL: 11.7 mCi Tc-99m sestamibi IV at rest and 26.3 mCi Tc-99m sestamibi IV at peak exercise. A [id number] was performed. INDICATIONS: Chest pain TECHNIQUE: Radiopharmaceutical was injected at peak stress test, and also at rest. SPECT images were obtained. SPECT myocardial perfusion images were displayed in short axis, horizontal long axis, and vertical long axis views. Gated images were reviewed using [employer] software. COMPARISON: None. CARDIAC STRESS: Rest EKG: Sinus rhythm, first-degree AV block, RBBB. Protocol: A standard Librado treadmill exercise tolerance test was performed by the patient under the supervision of an attending staff. The patient exercised for 6 minutes and 9 seconds; 7.0 METS; functional aerobic impairment (HERNANDEZ) is -44%. Hemodynamic data: There is normal blood pressure and heart rate response to exercise stress. Patient achieved 104% of maximum predicted heart rate at peak exercise. Maximum blood pressure 204/90. Symptoms: Patient denied chest pain during exercise. Stress EKG: Sinus tachycardia, RBBB, no ST segment changes, multifocal PVCs and ventricular couplets early in recovery. FINDINGS: Raw data: There is good myocardial labeling by radiotracer. No significant motion artifacts. Ycma-ch-yuvsw ratio is 0.45 (normal is less than 0.38 for sestamibi tracer, and less than 0.50 for thallium tracer). Left ventricle function: Gated images demonstrate normal left ventricle wall thickening. No segmental wall motion abnormality. No transient ischemic dilation; TID is 0.90 (normal less than 1.3). The left ventricle resting end-diastolic volume is 175 mL. Calculated left ventricle stress ejection fraction is 50% however visual ejection fraction 35 to 40%; normal values are above 45%. Myocardial perfusion: There is a large size, moderate to severe intensity fixed mid to distal anterior, anteroseptal and apical defect with associated hypokinesis. IMPRESSION: 1. No evidence of exercise-induced ischemia on ECG or SPECT imaging. 2. Evidence of anterior, anteroseptal and apical scar. 3. Increased LV EDV with moderately reduced ejection fraction. 4. Good exercise capacity. 5. Top normal blood pressure response to exercise. Dictated by: Isabel Spear D.O. on 09/22/2021 at 17:02 Approved by: Isabel Spear M.D. on 09/22/2021 at 17:13
--- NOTE | 2021-09-19 | PC.NURSE ---
Pt given Nitro X1, pain now 0
[2021-09-19 00:14] LABS: Alanine Aminotransferase 16 IU/L (<50); Albumin Globulin Ratio 1.5 (1.0-2.8); Alkaline Phosphatase 47 U/L (38-126); Aspartate Aminotransferase 24 IU/L (17-59); BUN Creatinine Ratio 17.7 (6-22); Bilirubin Total 1.2 mg/dL (0.2-1.3); Blood Urea Nitrogen 23 mg/dL (9-20); Calcium 9.8 mg/dL (8.4-10.2); Carbon Dioxide 26 mmol/L (22-32); Chloride 107 mmol/L (98-107); Creatine Kinase 73 U/L (55-170); Estimated Glomerular Filt Rate 52.3 mL/min (>60); Globulin 2.7 g/dL (1.7-4.1); Glucose 128 mg/dL (80-110); HEMOLYSIS < 15 (0-50); Lipase 189 U/L (23-300); Potassium 4.4 mmol/L (3.4-5.1); Sodium 140 mmol/L (137-145); Total Protein 6.7 g/dL (6.3-8.2)
[2021-09-19 00:25] LABS: Troponin I < 0.012 ng/mL (0.01-0.034)
[2021-09-19 00:32] LABS: Anisocytosis 1+; Schistocytes 1+
[2021-09-19 01:43] LABS: Creatine Kinase 64 U/L (55-170)
[2021-09-19 01:56] LABS: Troponin I < 0.012 ng/mL (0.01-0.034)
[2021-09-19 07:37] LABS: Cholesterol 112 mg/dL (140-199); HDL Cholesterol 34 mg/dL (40-60); LDL Cholesterol Calculated 63 mg/dL (<100); Triglycerides 76 mg/dL (35-150)
[2021-09-19] MEDS: DEXTROSE 5%-0.45% NS 1,000 ML 100 ML IV ×2 (07:49→13:42)
--- NOTE | 2021-09-19 07:49 | P.HP_ITS ---
History of Present Illness History of Present Illness Date Patient Seen: 09/19/21 Time Patient Seen: 07:49 Chief complaint: chest heaviness Narrative: 85 y/o male with a history of CAD, s/p ME age 54, 2 Coronary Stents, hyperlipidemia, chronic stable angina who was in his usual state of health until last night when he developed SSCP. Patient reports he has chronic stable angina, was started on IMDUR which he takes every evening. He typically gets exertional pain when mowing the lawn. It resolves with rest. Last night he was lying in bed and developed SSCP lasting about one hour. It was 3-4/10 in intensity. It did not radiate, he had no nausea, shortness of breath, or diaphoresis. The patient reports the pain started to subside prior to arrival to the ED. He was given one nitro in the ED and symptoms have completed resolved. He has occassional lower extremity edema, but no orthopnea, pnd, or palpitations. He denies headache, blurred vision, double vision, nausea, vomiting, hemetemsis, or bright red blood per rectum. Patient had an initial troponin which was normal. His EKG shows a bifasciular block but no acute ST Twave changes. Dr. Solis spoke to the [facility] Steeper who recommended Echo, Stress Test to risk stratify. Patient is admitted to the hospital for further evaluation. Patient History Medical History (Updated 09/19/21 @ 07:56 by Pam Acosta MD) Bronchitis (12/08/12) Coronary artery disease with stable angina pectoris Family history of sudden cardiac (SCD) (05/29/11) Hyperlipidemia Patient denies medical problems Family & Social History Family History (Updated 09/19/21 @ 07:58 by Pam Acosta MD) Mother Cancer Sister Lung cancer metastatic to brain Cancer Social History: rare alcohol, no tobacco Safety & Behavioral: Feels Safe in Current Yes Environment Tobacco & Substance use: Smoking Status Never smoker alcohol intake frequency a few times a week Substance Use Type does not use Meds Home Medications and Allergies Home Medications Medication Instructions Recorded Confirmed Type [ASPIRIN] 81 mg PO QDAY #0 12/08/12 History [allery medication] #0 12/26/16 History Allergies Allergy/AdvReac Type Severity Reaction Status Date / Time No Known Drug Allergies Allergy Verified 04/19/19 08:29 Review of Systems Review of Systems Narrative: 10 point review of systems is negative Exam Vital Signs (past 8 hours): - 09/18/21 23:52 09/18/21 23:56 09/19/21 00:00 Pulse Rate 48 L 44 L 47 L Respiratory Rate 9 L 8 L 8 L Blood Pressure 118/65 111/60 124/61 Pulse Oximetry 95 96 95 09/19/21 00:04 09/19/21 00:08 09/19/21 00:12 Pulse Rate 45 L 46 L 47 L Respiratory Rate 8 L 10 L 7 L Blood Pressure 117/58 L 121/66 119/67 Pulse Oximetry 95 95 96 09/19/21 00:16 09/19/21 00:22 09/19/21 00:24 Pulse Rate 47 L 49 L 47 L Respiratory Rate 10 L 20 11 L Blood Pressure 120/63 125/60 118/59 L Pulse Oximetry 96 95 96 09/19/21 00:28 09/19/21 00:30 09/19/21 00:32 Pulse Rate 47 L 49 L 47 L Respiratory Rate 6 L 12 11 L Blood Pressure 123/64 114/63 Pulse Oximetry 97 94 95 09/19/21 00:36 09/19/21 00:40 09/19/21 00:44 Pulse Rate 49 L 41 L 49 L Respiratory Rate 11 L 12 25 H Blood Pressure 114/63 114/64 131/74 Pulse Oximetry 96 95 95 09/19/21 00:48 09/19/21 01:00 09/19/21 01:30 Pulse Rate 50 L 45 L 43 L Respiratory Rate 22 14 15 Blood Pressure 154/74 H 138/66 130/63 Pulse Oximetry 96 95 97 09/19/21 02:00 09/19/21 02:30 09/19/21 02:58 Pulse Rate 44 L 48 L 51 L Respiratory Rate 13 15 Blood Pressure 132/63 144/68 H 128/59 L Pulse Oximetry 95 99 97 09/19/21 03:00 09/19/21 03:24 Pulse Rate 47 L 48 L Respiratory Rate 16 Blood Pressure 166/75 H Pulse Oximetry 97 97 Oxygen Delivery Method Room Air Narrative Exam Narrative: pleasant elderly male in no acute distress HENMT Other: NC/AT, PERRL, EOMI, Oropharynx clear, neck supple, no adenopathy or thyromegaly Resp Other: Lungs: clear to auscultation Cardio Other: RRR Nl Sl S2 GI Other: Abd: soft/ non tender/ non distended/ no hepatosplenomegaly Skin Other: no lesions Neuro Other: Cranial Nerves in tact, strength symmetric and equal, sensation grossly in tact Extrem Other: no edema Psych Other: normal thought content , process, normal mood Objective ECG Impression: Bifasicular block, sinus rhythm, no acute ST Twave changes Labs Result Diagrams: 09/18/21 23:15 09/18/21 23:15 Labs: Laboratory Results - last 24 hr 09/18/21 09/18/21 09/19/21 23:15 23:15 01:24 WBC 5.7 RBC 4.49 L Hgb 13.6 Hct 39.5 L MCV 88.1 MCH 30.4 MCHC 34.5 RDW 15.6 H Plt Count 156 Neut % (Auto) 53.7 Lymph % (Auto) 31.4 [place] % (Auto) 9.5 Eos % (Auto) 4.3 H Baso % (Auto) 1.1 Neut # (Auto) 3100 Lymph # (Auto) 1800 [place] # (Auto) 500 Eos # (Auto) 200 Baso # (Auto) 100 RBC Morphology See below Anisocytosis 1+ H Schistocytes 1+ H Sodium 140 Potassium 4.4 Chloride 107 Carbon Dioxide 26 BUN 23 H Creatinine 1.30 H Estimated GFR 52.3 L BUN/Creatinine Ratio 17.7 Glucose 128 H Calcium 9.8 Total Bilirubin 1.2 AST 24 ALT 16 Alkaline Phosphatase 47 Total Creatine Kinase 73 64 CK-MB (CK-2) TNP TNP CK-MB (CK-2) Rel Index TNP TNP Troponin I < 0.012 < 0.012 Total Protein 6.7 Albumin 4.0 Globulin 2.7 Albumin/Globulin Ratio 1.5 Triglycerides Cholesterol LDL Cholesterol, Calc HDL Cholesterol Lipase 189 09/19/21 01:24 WBC RBC Hgb Hct MCV MCH MCHC RDW Plt Count Neut % (Auto) Lymph % (Auto) [place] % (Auto) Eos % (Auto) Baso % (Auto) Neut # (Auto) Lymph # (Auto) [place] # (Auto) Eos # (Auto) Baso # (Auto) RBC Morphology Anisocytosis Schistocytes Sodium Potassium Chloride Carbon Dioxide BUN Creatinine Estimated GFR BUN/Creatinine Ratio Glucose Calcium Total Bilirubin AST ALT Alkaline Phosphatase Total Creatine Kinase CK-MB (CK-2) CK-MB (CK-2) Rel Index Troponin I Total Protein Albumin Globulin Albumin/Globulin Ratio Triglycerides 76 Cholesterol 112 L LDL Cholesterol, Calc 63 HDL Cholesterol 34 L Lipase Assessment & Plan Assessment & Plan narrative: 85 y/o male with a history of CAD, S/p 2 stents, chronic stable angina, hyperlipidemia, admitted to the hospital for recurrent chest pain * Patient presents with chest pain lasting one hour * EKG no acute ST Twave changes * Initial Troponin .012 * Given Aspirin * Continue imdur * no Bblocker for now * Continue Statin * Echo today * Await Stress Test-Patient had decaf coffee today. Need to determine if we can get stress test today. IF not, will get Echo r/o ME, and arrange outpatient stress testing for Wednesday Patient reports he is a full code. I have utilized all available resources to review, update, and confirm his current medications Patient will be admitted under observation. Time Spent With Patient Critical Care time: I spent a total of [] minutes of critical care time on this patient's care today; this time is exclusive of procedural time.
[2021-09-19 08:20] LABS: Troponin I < 0.012 ng/mL (0.01-0.034)
[2021-09-19] MEDS: ENOXAPARIN 40 MG/0.4 ML SYRINGE SUBCUT (10:39)
[2021-09-19] MEDS: ASPIRIN EC 81 MG TABLET PO (10:39)
[2021-09-19 15:15] LABS: COVID19 - ADMIT (NP swab/PCR) Negative (Negative)
[2021-09-19 16:14] LABS: Troponin I 0.015 ng/mL (0.01-0.034)
[2021-09-19] MEDS: SENNOSIDES 8.6 MG TABLET 17.2 MG PO (21:32)
[2021-09-19] MEDS: DOCUSATE 100 MG CAPSULE PO (21:33)
[2021-09-20] VITALS (9 sets, daily range): BP systolic 113–145; BP diastolic 46–72; PULSE 49–59; RESP 16–19; TEMP 36.3–37.3; O2SAT 93–100
[2021-09-20] MEDS: DEXTROSE 5%-0.45% NS 1,000 ML 100 ML IV (00:07)
[2021-09-20] MEDS: ASPIRIN EC 81 MG TABLET PO (08:33)
[2021-09-20] MEDS: ENOXAPARIN 40 MG/0.4 ML SYRINGE SUBCUT (08:33)
[2021-09-20] MEDS: ISOSORBIDE MONONITRATE ER 30 MG TABLET 60 MG PO (08:33)
[2021-09-20 09:45] LABS: BUN Creatinine Ratio 15.1 (6-22); Blood Urea Nitrogen 16 mg/dL (9-20); Calcium 9.6 mg/dL (8.4-10.2); Carbon Dioxide 29 mmol/L (22-32); Chloride 105 mmol/L (98-107); Estimated Glomerular Filt Rate > 60.0 mL/min (>60); Glucose 142 mg/dL (80-110); HEMOLYSIS < 15 (0-50); Potassium 5.3 mmol/L (3.4-5.1); Sodium 139 mmol/L (137-145)
--- NOTE | 2021-09-20 11:21 | CM.DANOTE ---
DCP: Case received, EMR reviewed and met with patient. Son, Rodney, was also at bedside.Introduced self and role. Was able to obtain information regarding patient's baseline activity status prior to hospitalization. DCP assessment completed with information currently available. Patient is an 85 year old male who admitted yesterday morning to the care of the hospitalist team. PCP: Dr. Marcie Canela. Payer: confirmed: Medicare/[employer]. Patient came to the hospital via private vehicle secondary to having some chest heaviness. Patient is under the care of a press operator automatic for history of cardiac issues. Patient had echo yesterday, and is scheduled to have a stress test. The stress test will occur on Wednesday. Met with patient and son, Rodney, in his room. Patient resides here in [place] with spouse, Velvet. According to patient's son, spouse is homebound, but did not offer further information. Patient is independent at his baseline, and drives. Patient and son are hopeful to discharge today and have stress test on an outpatient basis. P: DCP to continue to follow. Plan is for patient go home with stress test on an outpatient basis. Milly Krishna RN/Information Services Assistant Discharge Planning/Care Management CM Discharge Assessment Start: 09/20/21 11:19 Freq: Status: Active Protocol: Document 09/20/21 11:19 (Rec: 09/20/21 11:21 [id number]) Discharge Planning Assessment Assigned Tube Carrier Milly Krishna RN/Information Services Assistant Advance Directives? No History Provided By Patient,Medical Record Prior Living Arrangements House Household Members spouse Type of transporation used prior to Drives own vehicle admit Independent with ADL's Yes Is patient alert and oriented? Yes Caregiver for Another Spouse is home bound, according to son Barriers to Discharge No Transportation Arrangement Son Referrals Initiated None needed Whiteboard Updated in Patient Room with Yes name and ext. # of Tube Carrier Review Status In Process Next Review Type Continued Stay Review
--- NOTE | 2021-09-20 14:24 | P.PN_ITS ---
Subjective Subjective Date Patient Seen: 09/20/21 Interval history: He is seen in his room today to follow-up his chest pain and chronic kidney disease/HUMERA. His troponin reached 0.015 yesterday. His blood pressure is 145/64 with a heart rate of 50. His creatinine has risen up to 1.3. The cholesterol was 110 with an LDL of 63. He says that he wants to go home and initially we were going to proceed with that but then his daughter in law, who is a local nurse, was able to persuade him to stay until Wednesday to get the NM cardiac scan as going home before than and trying to get that arranged through his primary care or treatment manager would be even more of a delay. Exam Vital Signs (past 8 hours): - 09/20/21 07:48 09/20/21 10:35 09/20/21 11:00 Temperature 98.7 F 97.4 F L Pulse Rate 50 L 58 L Respiratory Rate 18 17 Blood Pressure 145/64 H 127/68 Pulse Oximetry 95 100 96 Oxygen Delivery Method Room Air Oxygen Flow Rate 0 Narrative Exam Narrative: He is alert and oriented x3 and in no apparent distress Heart is regular rate and rhythm without murmur Lungs are clear to auscultation bilaterally Extremities have no ankle edema Objective Labs Result Diagrams: 09/18/21 23:15 09/20/21 09:10 Labs: Laboratory Results - last 24 hr 09/19/21 09/19/21 09/20/21 13:05 15:36 09:10 Sodium 139 Potassium 5.3 H Chloride 105 Carbon Dioxide 29 BUN 16 Creatinine 1.06 Estimated GFR > 60.0 BUN/Creatinine Ratio 15.1 Glucose 142 H Calcium 9.6 Troponin I 0.015 SARS-CoV-2 (PCR) Negative [facility] Medical History (Updated 09/19/21 @ 07:56 by Pam Acosta MD) Bronchitis (12/08/12) Coronary artery disease with stable angina pectoris Family history of sudden cardiac (SCD) (05/29/11) Hyperlipidemia Patient denies medical problems Family History (Updated 09/19/21 @ 07:58 by Pam Acosta MD) Mother Cancer Sister Lung cancer metastatic to brain Cancer Social History household members: spouse Smoking Status: Former smoker alcohol intake: current Assessment & Plan Assessment & Plan narrative: 85 y/o male with a history of CAD, S/p 2 stents, chronic stable angina, hyperlipidemia, admitted to the hospital for recurrent chest pain * Patient presents with chest pain lasting one hour * EKG no acute ST T wave changes * Initial Troponin .012 * Given Aspirin * Continue imdur * no Beta ventura for now * Continue Statin * Echo with The ejection fraction is estimated to be 30-35%. Anterior and anteroseptal hypokinesis. [place] is akinetic with small area of dyskinesis. A small inferoapical aneurysm is suspected, consider cardiac MRI The right ventricle is mildly dilated. There is mild to moderate mitral regurgitation. * He is a full code. * Because he drank decaf coffee on 09/19 his NM cardiac scan was delayed until Saturday 09/22. He initially planned to go home today but was persuaded by family to stay so the test could be done sooner than if he went home and had his PCP or treatment manager schedule it from the outpatient side. * His treatment manager is Dr. Henry. Time Spent With Patient Critical Care time: I spent a total of [] minutes of critical care time on this patient's care today; this time is exclusive of procedural time. Quality VTE Deep Vein Thrombosis/Pulmonary Embolism Present on Admission: No
[2021-09-20] MEDS: DOCUSATE 100 MG CAPSULE PO (19:49)
[2021-09-20] MEDS: SENNOSIDES 8.6 MG TABLET 17.2 MG PO (19:49)
[2021-09-20] MEDS: SODIUM CHLORIDE 0.9% FLUSH 10 ML IV (19:50)
[2021-09-21] VITALS (7 sets, daily range): BP systolic 125–139; BP diastolic 69–82; PULSE 53–91; RESP 15–20; TEMP 36.1–36.8; O2SAT 94–96
[2021-09-21] MEDS: ISOSORBIDE MONONITRATE ER 30 MG TABLET 60 MG PO (08:00)
[2021-09-21] MEDS: DOCUSATE 100 MG CAPSULE PO ×2 (08:00→20:42)
[2021-09-21] MEDS: ENOXAPARIN 40 MG/0.4 ML SYRINGE SUBCUT (08:00)
[2021-09-21] MEDS: ASPIRIN EC 81 MG TABLET PO (08:00)
[2021-09-21] MEDS: SODIUM CHLORIDE 0.9% FLUSH 10 ML IV ×2 (08:00→20:43)
--- NOTE | 2021-09-21 18:33 | P.PN_ITS ---
Subjective Subjective Date Patient Seen: 09/21/21 Interval history: NO FURTHER CHEST PAIN REPORTED NO INCREASING SHORTNESS OF BREATH FEELING MUCH BETTER Exam Vital Signs (past 8 hours): - 09/21/21 11:21 09/21/21 15:08 Temperature 98.2 F 98.2 F Pulse Rate 62 89 Respiratory Rate 15 16 Blood Pressure 125/81 128/75 Pulse Oximetry 96 94 Oxygen Delivery Method Room Air Oxygen Flow Rate 0 Const General: cooperative, healthy appearing, comfortable and well developed [facility] Head: normal to inspection, normocephalic and atraumatic Eyes General: appearance normal, both eyes and all related structures EOM: EOM intact bilaterally Neck Neck: normal visual inspection Resp Effort & Inspection: normal respiratory effort and able to speak in complete sentences Cardio Palpation: normal PMI Rate: regular rate Rhythm: regular rhythm Heart Sounds: S1 normal and S2 normal GI Inspection: normal to inspection Palpation: soft and no hepatosplenomegaly Auscultation: normal bowel sounds Neuro Cranial Nerves: CN's II-XI intact bilaterally and EOM intact bilaterally Extrem General: normal to inspection and full ROM Objective Labs Result Diagrams: 09/18/21 23:15 09/20/21 09:10 [facility] Medical History (Updated 09/19/21 @ 07:56 by Pam Acosta MD) Bronchitis (12/08/12) Coronary artery disease with stable angina pectoris Family history of sudden cardiac (SCD) (05/29/11) Hyperlipidemia Patient denies medical problems Family History (Updated 09/19/21 @ 07:58 by Pam Acosta MD) Mother Cancer Sister Lung cancer metastatic to brain Cancer Social History household members: spouse Smoking Status: Former smoker alcohol intake: current Assessment & Plan Assessment & Plan narrative: PROBLEM LIST ATYPICAL CHEST PAIN. RESOLVED CAD PER HISTORY HYPERLIPIDEMIA PER HISTORY PLAN PATIENT CONTINUED TO SHOW CLINICAL IMPROVEMENT KEEP ON TELE AT ALL TIMES CONTINUE CURRENT MANAGEMENT FOR NOW AWAITING POSSIBLE CHEMICAL STRESS TESTING IN THE MORNING CONTINUE HOME MEDS IF STRESS TEST IS NEGATIVE IN THE MORNING, SHOULD BE ABLE TO BE DISCHARGED TO HOME Time Spent With Patient Critical Care time: I spent a total of [] minutes of critical care time on this patient's care today; this time is exclusive of procedural time. Quality VTE Deep Vein Thrombosis/Pulmonary Embolism Present on Admission: No
[2021-09-21] MEDS: SENNOSIDES 8.6 MG TABLET 17.2 MG PO (20:42)
[2021-09-21] MEDS: ATORVASTATIN 20 MG TABLET PO (20:42)
--- NOTE | 2021-09-21 21:42 | PC.NURSE ---
Patient is alert and oriented. SENECA with bilateral hearing aids out for the night. Breath sounds CTA with RA sat of 94%. HRR but tachy; telemetry reading was ST w/BBB. Denied nausea. BT hypoactive but states he is passing flatus and reports having had BM earlier today. Denied dysuria but states he urinates frequently. Is independent with mobility and steady on feet. Refused SCD's so reminded to ankle wave when awake; verbalizes understanding. Denied pain. Will be NPO after 0000 as per MD order as patient is having stress test in a.m. Fall risk score is low.
[2021-09-22 00:05] VITALS: BP 118/73; PULSE 66; RESP 20; TEMP 36.4; O2SAT 93
[2021-09-22 05:10] VITALS: BP 128/74; PULSE 58; RESP 20; TEMP 36.8; O2SAT 94
[2021-09-22 06:03] LABS: Basophils Absolute Auto 100 /uL (0-100); Basophils Percent Auto 0.9 % (0-2); Eosinophils Absolute Auto 200 /uL (0-450); Eosinophils Percent Auto 3.8 % (2-4); Hematocrit 44.7 % (41-53); Hemoglobin 15.2 g/dL (13.5-17.5); Lymphocytes Absolute Auto 1700 /uL (1100-4500); Lymphocytes Percent Auto 27.4 % (25-40); Mean Corpuscular HGB Conc 33.9 % (30-36); Mean Corpuscular Hemoglobin 30.2 PG (26-34); Mean Corpuscular Volume 88.9 fL (80-100); Monocytes Absolute Auto 600 /uL (0-900); Monocytes Percent Auto 10.6 % (3-14); Neutrophils Absolute Auto 3500 /uL (1500-7000); Neutrophils Percent Auto 57.3 % (50-75); Platelet Count 158 X10^3/uL (150-400); Red Blood Cell Count 5.03 X10^6/uL (4.5-5.9); Red Cell Distribution Width 16.2 % (11.6-14.8); White Blood Cell Count 6.1 X10^3/uL (4.5-11.0)
[2021-09-22 06:04] LABS: Add Manual Diff / Slide Review SLIDE REVIEW
[2021-09-22 06:08] LABS: Alanine Aminotransferase 22 IU/L (<50); Albumin 4.1 g/dL (3.5-5.0); Albumin Globulin Ratio 1.4 (1.0-2.8); Alkaline Phosphatase 54 U/L (38-126); Aspartate Aminotransferase 29 IU/L (17-59); BUN Creatinine Ratio 23.7 (6-22); Bilirubin Total 1.7 mg/dL (0.2-1.3); Blood Urea Nitrogen 23 mg/dL (9-20); Calcium 9.7 mg/dL (8.4-10.2); Carbon Dioxide 29 mmol/L (22-32); Chloride 105 mmol/L (98-107); Estimated Glomerular Filt Rate > 60.0 mL/min (>60); Glucose 130 mg/dL (80-110); HEMOLYSIS < 15 (0-50); Phosphorous 2.9 mg/dL (2.3-3.7); Potassium 4.7 mmol/L (3.4-5.1); Sodium 139 mmol/L (137-145); Total Protein 7.1 g/dL (6.3-8.2)
[2021-09-22 06:35] LABS: Anisocytosis 1+
[2021-09-22 07:33] VITALS: BP 137/69; PULSE 52; RESP 16; TEMP 36.6; O2SAT 97
[2021-09-22 07:36] VITALS: O2SAT 97
[2021-09-22 08:52] VITALS: O2SAT 92
[2021-09-22] MEDS: SODIUM CHLORIDE 0.9% FLUSH 10 ML IV (10:34)
[2021-09-22] MEDS: ENOXAPARIN 40 MG/0.4 ML SYRINGE SUBCUT (10:35)
[2021-09-22] MEDS: ASPIRIN EC 81 MG TABLET PO (10:39)
[2021-09-22 11:34] VITALS: BP 152/62; PULSE 50; RESP 18; TEMP 36.3; O2SAT 97
--- NOTE | 2021-09-22 14:50 | P.DS_ITS ---
History of Present Illness History of Present Illness Chief complaint: chest heaviness Narrative: History of Present Illness History of Present Illness Date Patient Seen:?09/19/21 Time Patient Seen:?07:49 Narrative: 85 y/o male with a history of CAD, s/p [place] age 54, 2 Coronary Stents, hy perlipidemia, chronic stable angina who was in his usual state of health until last night when he developed SSCP. Patient reports he has chronic stable angina, was started on IMDUR which he takes every evening. He typically gets exertional pain when mowing the lawn. It resolves with rest. Last night he was lying in bed and developed SSCP lasting about one hour. It was 3-4/10 in intensity. It did n ot radiate, he had no nausea, shortness of breath, or diaphoresis.? The patient reports the pain started to subside prior to arrival to the ED. He was given one nitro in the ED and symptoms have completed resolved. He has occassional lower extremity edema, but no orthopnea, pnd, or palpitations. He denies headache, blurred vision, double vision, nausea, vomiting, hemetemsis, or bright red blood per rectum.? Patient had an initial troponin which was normal. His EKG shows a bifasciular block but no acute ST Twave changes. Dr. Solis spoke to the [facility] Transportation Officer who recommended Echo, Stress Test to risk stratify. Patient is admitted to the hospital for further evaluation. Discharge Providers Provider Date of admission: 09/19/21 02:54 Discharge Date: 09/22/21 Primary care physician: Marcie Canela MD Discharge provider: Arely Mckeon DO Summary Hospital Course Discharge Diagnosis: ACUTE ON CHRONIC SYSTOLIC HEART FAILURE ATYPICAL CHEST PRESSURE. CONSIDER ANGINA CAD PER HISTORY. STENT PLACEMENT X2 REPORTED PHYSICAL DEBILITY. LIKELY AGING PROCESS ASSOCIATED HYPERTENSION. CVA PER HISTORY BRADYCARDIA. CONSIDER SICK SINUS SYNDROME Hospital Course: THIS IS A VERY PLEASANT 85-YEAR-OLD MALE WITH PAST MEDICAL HISTORY SIGNIFICANT FOR CAD. STENT PLACEMENT REPORTED TIME 2 ABOUT 15 YEARS AGO. MORE RECENTLY, PATIENT WAS DIAGNOSED FOR CVA. HE PRESENTED TO THE HOSPITAL REPORTING CHEST PRESSURE ONGOING FOR LAST FEW MONTHS. HE WAS ADMITTED TO THE HOSPITAL. TROPONIN TRENDED WAS UNREMARKABLE. HOWEVER BECAUSE OF HER HISTORY, IT WAS SENT FOR A STRESS TEST WHICH RESULT IS PENDING AT THIS TIME. IN ANY CASE, WE DO NOT HAVE CARDIOLOGY SERVICE IN THIS HOSPITAL. PATIENT DOES NOT APPEAR TO BE IN ACUTE DISTRESS. HE REPORTED THAT HIS CHEST DISCOMFORT HAS IMPROVED. HE WILL NEED TO BE EVALUATED BY HIS BURIAL VAULT MAKER FOR FURTHER MANAGEMENT. THE PATIENT MAY NEED A LEFT HEART CATHETERIZATION AND TO BE EVALUATED FOR A PACEMAKER DUE TO HIS PERSISTENT BRADYCARDIA. I SPOKE TO PATIENT'S SON ON THE PHONE. QUESTIONS AND CONCERNS WERE ADDRESSED TO HE IS UNDERSTANDING AND UNDERSTANDING. HE SPOKE TO PATIENT'S BURIAL VAULT MAKER OFFICE AND HE HAS AN APPOINTMENT NEXT MONTH FOR THE PATIENT REPORTEDLY. IN THE MEANWHILE, PATIENT WILL BE CONTINUE ON ASPIRIN, LISINOPRIL WILL BE ADDED. BECAUSE OF HIS BRADYCARDIA, UNABLE TO ADD A BETA RANCHO. HE WILL BE STARTED ON LASIX WELL. ADDITIONAL MANAGEMENT WILL BE DEFER TO HIS OUTPATIENT PROVIDERS ACTIVITIES WILL BE TOLERATED AND CARDIAC DIET RECOMMENDED WITH FLUID RESTRICTION OF 2000 CC DAILY FOLLOW-UP WITH PRIMARY CARE PHYSICIAN WITHIN 1-2 WEEKS FOLLOW-UP WITH CARDIOLOGY WITHIN 2-3 WEEKS Status at Discharge Cognitive/behavioral status at discharge: oriented Functional status at discharge: independent ambulation Overall status at discharge: patient is back to baseline Time Spent with Patient Time spent: Greater than 30 minutes Exam Vital Signs (past 8 hours): - 09/22/21 07:33 09/22/21 07:36 09/22/21 08:52 Temperature 98 F Pulse Rate 52 L Respiratory Rate 16 Blood Pressure 137/69 Pulse Oximetry 97 97 92 09/22/21 11:34 Temperature 97.4 F L Pulse Rate 50 L Respiratory Rate 18 Blood Pressure 152/62 H Pulse Oximetry 97 Oxygen Delivery Method Room Air Oxygen Flow Rate 0 Narrative Exam Narrative: NO ACUTE DISTRESS. PATIENT IS ALERT ORIENTED X3. VITAL SIGNS STABLE HEAD ATRAUMATIC NORMOCEPHALIC NECK : SUPPLE WITHOUT ADENOPATHY NO CAROTID BRUITS EYE: EOMI, PERRLA, NORMAL CONJUNCTIVA; NO JAUNDICE CHEST: REGULAR RATE. NO RUBS. PMI IS NON DISPLACED. 1/6 SYSTOLIC MURMUR APPRECIATED IN THE 2ND INTERCOSTAL ON THE RIGHT; NORMAL S1-S2 PULMONARY: DECREASED BS OVER THE BASES. MILD BIBASILAR CRACKLES NOTED; NO INCREASED DULLNESS TO PERCUSSION ABDOMEN: SOFT. NONTENDER. NONDISTENDED. BOWEL SOUNDS ARE PRESENT IN ALL 4 QUADRANTS. NO MASS. EXTREMITIES: NO EDEMA.. NO CYANOSIS CLUBBING NOTED. NEURO: CRANIAL NERVES 2-12 GROSSLY INTACT. NO FOCAL NEUROLOGICAL DEFICIT NOTED. MSK: NORMAL RANGE OF MOTION FOR AGE. NO JOINT EFFUSION. SKIN: NORMAL FOR ETHNICITY; NO ECCHYMOSIS. NO LESION. GOOD TURGOR.; NO RASHES : NORMAL EXTERNAL GENITALIA. PSYCH : APPROPRIATE MOOD AND AFFECT. ALERT AWAKE ORIENTED X3 Objective Labs Result Diagrams: 09/22/21 05:47 09/22/21 05:47 Labs: Laboratory Results - last 24 hr 09/22/21 09/22/21 05:47 05:47 WBC 6.1 RBC 5.03 Hgb 15.2 Hct 44.7 MCV 88.9 MCH 30.2 MCHC 33.9 RDW 16.2 H Plt Count 158 Neut % (Auto) 57.3 Lymph % (Auto) 27.4 [place] % (Auto) 10.6 Eos % (Auto) 3.8 Baso % (Auto) 0.9 Neut # (Auto) 3500 Lymph # (Auto) 1700 [place] # (Auto) 600 Eos # (Auto) 200 Baso # (Auto) 100 RBC Morphology See below Anisocytosis 1+ H Sodium 139 Potassium 4.7 Chloride 105 Carbon Dioxide 29 BUN 23 H Creatinine 0.97 Estimated GFR > 60.0 BUN/Creatinine Ratio 23.7 H Glucose 130 H Calcium 9.7 Phosphorus 2.9 Total Bilirubin 1.7 H AST 29 ALT 22 Alkaline Phosphatase 54 Total Protein 7.1 Albumin 4.1 Globulin 3.0 Albumin/Globulin Ratio 1.4 PFSH Medical History (Updated 09/19/21 @ 07:56 by Pam Acosta MD) Bronchitis (12/08/12) Coronary artery disease with stable angina pectoris Family history of sudden cardiac (SCD) (05/29/11) Hyperlipidemia Patient denies medical problems Family History (Updated 09/19/21 @ 07:58 by Pam Acosta MD) Mother Cancer Sister Lung cancer metastatic to brain Cancer Social History household members: spouse Smoking Status: Former smoker alcohol intake: current Discharge Plan Discharge Plan Patient Disposition: Home Nursing Discharge Comment: ACTIVITIES TOLERATED CARDIAC DIET FOLLOW-UP WITH PRIMARY CARE PHYSICIAN WHICH IN 1-2 WEEKS FOLLOW-UP WITH CARDIOLOGY WITHIN 2-4 WEEKS Discharge orders & Medications Prescriptions: New sennosides [senna] 8.6 mg Tablet 17.2 mg PO BEDTIME Qty: 60 0RF atorvastatin [Lipitor] 20 mg Tablet 20 mg PO BEDTIME Qty: 90 0RF nitroglycerin [Nitrostat] 0.4 mg Tablet, Sublingual 0.4 mg sublingual [id number] PRN (Reason: Chest Pain) Qty: 20 0RF lisinopril 10 mg tablet 10 mg PO DAILY Qty: 30 0RF furosemide [Lasix] 20 mg tablet 10 mg PO QAM Qty: 30 0RF Continued aspirin 81 mg Tablet,Delayed Release (Dr/Ec) 81 mg PO DAILY 0RF Discontinued aspirin 81 mg Tablet 81 mg PO QAM 0RF Medication counseling provided by Pharmacist: Yes Follow up/Referrals: Marcie Canela MD [Primary Care Provider] - Diet/Activity/Treatments Diet: Low-fat, Low-sodium and Low-cholesterol Skin/Wound/Dressing Care Report to your healthcare provider any signs of infection, such as:: chills, fever, night sweats, increased pain, unusual drainage and unusual redness Discharge Data Primary Care Provider: Marcie Canela Attending Provider: Pam Acosta VTE Deep Vein Thrombosis/Pulmonary Embolism Present on Admission: No
--- NOTE | 2021-09-22 15:25 | CM.DPC ---
DCP Discharge Home Per MD, pt's Stress test results read and pt medically stable to d/c home with outpt follow up and no identified barriers to discharge. Per RN, no concerns at this time and pt agreeable and happy to be discharging home with his . Plan: Patient to d/c home this afternoon via spouse POV and no SW needs at this time. JEFF Hollis
== END 2021-09-22 15:00 | disposition home or self-care (01) ==
LOC: ED 09-19 01:46 → AC 09-19 02:54
PROVIDERS: Emergency Medicine; Family Medicine; Hospitalist; Admitting Provider Internal Medicine; Emergency Provider Emergency Medicine; Family Provider Internal Medicine; PCP Internal Medicine; Referring Provider Emergency Medicine; Visit Provider Internal Medicine
DX: I11.0 Hypertensive heart disease with heart failure (principal); I50.23 Acute on chronic systolic (congestive) heart failure; I25.10 Atherosclerotic heart disease of native coronary artery without angina pectoris; Z95.818 Presence of other cardiac implants and grafts; E78.5 Hyperlipidemia, unspecified; I25.2 Old myocardial infarction; Z86.73 Personal history of transient ischemic attack (TIA), and cerebral infarction without residual deficits; Z53.29 Procedure and treatment not carried out because of patient's decision for other reasons; Z20.822 Contact with and (suspected) exposure to COVID-19
CPT/HCPCS: 36415; 71045; 78452; 80048; 80053; 80061; 82550; 82553; 83690; 84100; 84484; 85025; 87635; 93005; 93017; 93306; 94760; 96361; 96365; 96366; 99285; C9803; G0378; A9502; J1650

== ENCOUNTER → 2021-11-27 08:34 | Outpatient (CLI) | payer MEDICARE, SELFPAY ==
[2021-09-19 13:19] VITALS: BMI 25.7
[2021-11-27 09:33] LABS: BUN Creatinine Ratio 19.5 (6-22); Blood Urea Nitrogen 22 mg/dL (9-20); Calcium 9.7 mg/dL (8.4-10.2); Carbon Dioxide 25 mmol/L (22-32); Chloride 109 mmol/L (98-107); Estimated Glomerular Filt Rate > 60.0 mL/min (>60); Glucose 119 mg/dL (80-110); HEMOLYSIS < 15 (0-50); Potassium 4.5 mmol/L (3.4-5.1); Sodium 141 mmol/L (137-145)
== END ==
PROVIDERS: Family Provider Internal Medicine; PCP Internal Medicine; Referring Provider Physician Assistant; Visit Provider Physician Assistant
DX: I25.5 Ischemic cardiomyopathy (principal)
CPT/HCPCS: 36415; 80048

== ENCOUNTER → 2022-01-20 08:51 | Outpatient (CLI) | payer MEDICARE, SELFPAY ==
[2021-09-19 13:19] VITALS: BMI 25.7
[2022-01-20 10:41] LABS: BUN Creatinine Ratio 18.4 (6-22); Blood Urea Nitrogen 21 mg/dL (9-20); Calcium 9.5 mg/dL (8.4-10.2); Carbon Dioxide 25 mmol/L (22-32); Chloride 106 mmol/L (98-107); Estimated Glomerular Filt Rate > 60.0 mL/min (>60); Glucose 117 mg/dL (80-110); HEMOLYSIS < 15 (0-50); Potassium 4.8 mmol/L (3.4-5.1); Sodium 137 mmol/L (137-145)
== END ==
PROVIDERS: Family Provider Internal Medicine; PCP Internal Medicine; Referring Provider Student in an Organized Health Care Education/Training Program; Visit Provider Student in an Organized Health Care Education/Training Program
DX: I49.3 Ventricular premature depolarization (principal)
CPT/HCPCS: 36415; 80048

== ENCOUNTER 2022-04-13 07:22 | Emergency (ER) | payer MEDICARE, SELFPAY ==
[2021-09-19 13:19] VITALS: BMI 25.7
[2022-04-13 07:34] VITALS: BP 147/74; PULSE 66; RESP 18; TEMP 36.4; O2SAT 97; BMI 24.4
--- NOTE | 2022-04-13 09:19 | DI.RAD.S_ITS ---
PROCEDURE: XR KNEE RT 3V INDICATIONS: knee injury TECHNIQUE: 3 views of the knee were acquired. COMPARISON: None. FINDINGS: Bones: No fractures or dislocations. No suspicious bony lesions. Mild tricompartmental knee joint degeneration. Is mild chondrocalcinosis. Soft tissues: Mild prepatellar soft tissue swelling. Small joint effusion. Atherosclerotic calcifications are noted. IMPRESSION: 1. No acute osseous abnormalities. 2. Small knee joint effusion. Dictated by: Michael Valentino M.D. on 04/13/2022 at 10:22 Approved by: Michael Valentino M.D. on 04/13/2022 at 10:24
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
== END 2022-04-13 10:30 | disposition home or self-care (01) ==
PROVIDERS: Emergency Provider Emergency Medicine; Family Provider Internal Medicine; PCP Internal Medicine
DX: S80.01XA Contusion of right knee, initial encounter (principal); V89.2XXA Person injured in unspecified motor-vehicle accident, traffic, initial encounter
CPT/HCPCS: 73562; 99283

== ENCOUNTER 2022-05-06 14:05 | Inpatient (IN) | payer MEDICARE, SELFPAY ==
[2021-09-19 13:19] VITALS: BMI 25.7
[2022-05-06] VITALS (33 sets, daily range): BP systolic 78–115; BP diastolic 44–62; PULSE 66–99; RESP 11–25; TEMP 36.1–36.5; O2SAT 94–98; BMI 24.4
[2022-05-06 14:31] LABS: Add Manual Diff / Slide Review NO; Basophils Absolute Auto 100 /uL (0-100); Basophils Percent Auto 0.6 % (0-2); Eosinophils Absolute Auto 0 /uL (0-450); Eosinophils Percent Auto 0.3 % (2-4); Hematocrit 33.2 % (41-53); Hemoglobin 11.2 g/dL (13.5-17.5); Lymphocytes Absolute Auto 1000 /uL (1100-4500); Mean Corpuscular HGB Conc 33.8 % (30-36); Mean Corpuscular Hemoglobin 30.2 PG (26-34); Mean Corpuscular Volume 89.3 fL (80-100); Monocytes Absolute Auto 700 /uL (0-900); Monocytes Percent Auto 7.9 % (3-14); Neutrophils Absolute Auto 7300 /uL (1500-7000); Neutrophils Percent Auto 80.2 % (50-75); Platelet Count 201 X10^3/uL (150-400); Red Blood Cell Count 3.72 X10^6/uL (4.5-5.9); Red Cell Distribution Width 15.8 % (11.6-14.8); White Blood Cell Count 9.1 X10^3/uL (4.5-11.0)
[2022-05-06 14:43] LABS: INR 1.4 (0.9-1.3); Prothrombin Time 15.3 SECONDS (10.1-12.7)
[2022-05-06 14:45] LABS: PTT Partial Thromboplastin Tim 25 SECONDS (26.4-36.2)
[2022-05-06 14:47] LABS: Alanine Aminotransferase 12 IU/L (<50); Albumin 3.5 g/dL (3.5-5.0); Albumin Globulin Ratio 1.5 (1.0-2.8); Alkaline Phosphatase 49 U/L (38-126); Aspartate Aminotransferase 18 IU/L (17-59); BUN Creatinine Ratio 43.1 (6-22); Bilirubin Total 1.4 mg/dL (0.2-1.3); Blood Urea Nitrogen 44 mg/dL (9-20); Calcium 9.1 mg/dL (8.4-10.2); Carbon Dioxide 24 mmol/L (22-32); Chloride 105 mmol/L (98-107); Estimated Glomerular Filt Rate > 60 mL/min (>60); Globulin 2.3 g/dL (1.7-4.1); Glucose 193 mg/dL (80-110); HEMOLYSIS < 15 (0-50); Potassium 4.8 mmol/L (3.4-5.1); Sodium 136 mmol/L (137-145); Total Protein 5.8 g/dL (6.3-8.2)
--- NOTE | 2022-05-06 16:23 | ED_ITS ---
HPI - GI Bleed General Chief complaint: GI Bleed Stated complaint: Altered LOC- blood in stool/vomit- low HR Time Seen by Provider: 05/06/22 16:08 History of Present Illness HPI Narrative: Patient here with his son. He today patient had coffee-ground emesis and black tarry stools. Patient is on Plavix. Has history of CHF but heart attack or diabetes. Patient's heart rate usually is in the 50s. This is high for him on triage. Blood pressure is slightly low. No syncope. No abdominal pain no chest pain. No recent fatigue or shortness of breath. Patient is on Plavix. History of stroke in the past. Colonoscopy in the past but no EGD. Denies any epigastric or chest pain. No dizziness. Related Data Home Medications Medication Instructions Recorded Confirmed isosorbide mononitrate 30 mg 30 mg PO DAILY 05/06/22 05/06/22 tablet,extended release 24 hr lisinopril 10 mg tablet 15 mg PO DAILY 05/06/22 05/06/22 mexiletine 150 mg capsule 1 cap PO TID 05/06/22 05/06/22 pravastatin 40 mg tablet 40 mg PO BEDTIME 05/06/22 05/06/22 spironolactone 25 mg tablet 12.5 mg PO DAILY 05/06/22 05/06/22 tamsulosin 0.4 mg capsule 0.4 mg PO BEDTIME 05/06/22 05/06/22 Previous Rx's Medication Instructions Recorded furosemide 20 mg tablet (Lasix) 10 mg PO QAM #30 tabs 09/22/21 nitroglycerin 0.4 mg sublingual 0.4 mg sublingual [id number] PRN 09/22/21 tablet (Nitrostat) Chest Pain #20 tabs sennosides 8.6 mg tablet (senna) 17.2 mg PO BEDTIME #60 tabs 09/22/21 pantoprazole 40 mg tablet,delayed 40 mg PO BID 30 days #60 tabs 05/08/22 release Allergies Allergy/AdvReac Type Severity Reaction Status Date / Time atorvastatin Allergy Verified 05/06/22 18:00 Beta-Blockers AdvReac Verified 05/06/22 18:00 (Beta-Adrenergic Bloc Review of Systems Review of Systems Narrative: GENERAL: Denies chills, fatigue, malaise, fever, sweats. HEENT: Denies sinus pain, ear pain, sore throat RESPIRATORY: Denies dyspnea, cough CARDIOVASCULAR: Denies chest pain, palpitations GASTROINTESTINAL: Positive for hematemesis and black tarry stool and positive for nausea, vomiting, negative for abdominal pain : Denies dysuria, frequency, hematuria MUSCULOSKELETAL: denies muscle or bony pain SKIN: Denies rash, skin lesions NEUROLOGIC: Denies weakness, numbness ROS Unobtainable: All systems reviewed & are unremarkable except as noted in HPI and below Patient History Medical History (Updated 05/07/22 @ 17:03 by Wagner Ortiz MD) Coronary artery disease with stable angina pectoris Family history of sudden cardiac (SCD) (05/29/11) H/O: CVA (cerebrovascular accident) Hx of myocardial infarction Hyperlipidemia Surgical History H/O repair of rotator cuff Hx of heart artery stent Family History Mother Cancer Sister Lung cancer metastatic to brain Cancer Father Myocardial infarction Brother Myocardial infarction Social History household members: spouse Smoking Status: Former smoker alcohol intake: current Smoking Status: Former smoker alcohol intake frequency: a few times a week Substance Use Type: does not use Exam Narrative Exam Narrative: GENERAL: in no distress, not toxic not dyspneic HEAD: Normocephalic. EYES: Pupils equal round No scleral icterus. There is some pale conjunctiva ENT: Mucous membranes moist. NECK: Trachea midline. CARDIOVASCULAR: Regular rate and rhythm without murmurs RESPIRATORY: Clear to auscultation. Breath sounds equal bilaterally. No wheezes, rales, or rhonchi. GASTROINTESTINAL: Abdomen soft, non-tender, no peritoneal signs. No pain out of proportion to exam. EXTREMITIES: No gross deformities. BACK: No flank tenderness. NEURO: AOx4. SKIN: Warm and dry PSYCH: Not anxious, is cooperative Initial Vital Signs Initial Vital Signs: Vital Signs Temperature 97.6 F 05/06/22 14:10 Pulse Rate 99 H 05/06/22 14:10 Respiratory Rate 18 05/06/22 14:10 Blood Pressure 93/52 L 05/06/22 14:10 Pulse Oximetry 98 05/06/22 14:10 Oxygen Delivery Method 05/06/22 14:10 Course Course Course Narrative: No new issues during course of stay Decision to Admit Date: 05/06/22 Decision to Admit time: 16:32 Orders Ordered: Discontinued Medications Sodium Chloride (Normal Saline 0.9%) 1,000 mls @ 1,000 mls/hr IV BOLUS ONE Stop: 05/06/22 17:21 Last Admin: 05/06/22 16:36 Dose: 1,000 mls/hr Documented By: KIMBERLEY Morphine Sulfate (Morphine 2 Mg/Ml Inj) 2 mg IV Q4H PRN PRN Reason: Pain, Moderate (4-6) Nf - Mexiletine 150 (Mg Capsule) 1 cap PO TID COUNTS INCLUDE 234 BEDS AT THE [facility] Last Admin: 05/07/22 14:56 Dose: Not Given Documented By: Admin: 05/07/22 11:34 Dose: Not Given Documented By: Admin: 05/06/22 21:16 Dose: Not Given Documented By: TRESSA Ondansetron HCl (Ondansetron 4 Mg/2 Ml Inj) 4 mg IV NOW ONE Stop: 05/06/22 18:07 Last Admin: 05/06/22 18:23 Dose: 4 mg Documented By: ANGELO Ondansetron HCl (Ondansetron 4 Mg/2 Ml Inj) 4 mg IV Q8HR PRN PRN Reason: Nausea And Vomiting Pantoprazole Sodium (Pantoprazole 40 Mg Vial) 80 mg IV NOW ONE Stop: 05/06/22 16:23 Last Admin: 05/06/22 16:41 Dose: 80 mg Documented By: KIMBERLEY Pantoprazole Sodium (Pantoprazole 40 Mg Vial) 40 mg IV BID COUNTS INCLUDE 234 BEDS AT THE [facility] Last Admin: 05/07/22 09:12 Dose: 40 mg Documented By: Admin: 05/06/22 21:15 Dose: 40 mg Documented By: TRESSA Pantoprazole Sodium (Pantoprazole Dr 20 Mg Tablet) 40 mg PO NOW ONE Stop: 05/07/22 18:28 Sodium Chloride (Sodium Chloride 0.9% Flush) 10 ml IV PRN PRN PRN Reason: Flush Sodium Chloride (Sodium Chloride 0.9% Flush) 10 ml IV BID COUNTS INCLUDE 234 BEDS AT THE [facility] Last Admin: 05/07/22 09:12 Dose: 10 ml Documented By: Admin: 05/06/22 21:15 Dose: 10 ml Documented By: SMS Reevaluation(s) Reevaluation #1: Reviewed blood work with patient and son. They do agree for admit for observation and possible endoscopy Time: 16:32 Reevaluation #2: Patient has had a large volume is amount black tarry stool. Blood pressure is stable Time: 18:23 Consultations Consultation #1: Spoke with general surgery Dr. Ortiz, recommends transfusing patient overnight and will do endoscopy of the stomach tomorrow morning. Admit to hospitalist. Time: 18:23 Consultation #2: Spoke with hospitalist, Dr. Elias, will admit to ICU Time: 18:27 Vital Signs Vital signs: Vital Signs - 8 hr 05/06/22 14:10 05/06/22 16:11 05/06/22 16:11 Temperature 97.6 F Pulse Rate 99 H 78 Respiratory Rate 18 Blood Pressure 93/52 L 98/54 L Pulse Oximetry 98 97 Oxygen Delivery Method Room Air 05/06/22 16:30 05/06/22 16:30 05/06/22 17:00 Temperature Pulse Rate 93 H Respiratory Rate Blood Pressure 98/56 L 89/62 L Pulse Oximetry 98 Oxygen Delivery Method 05/06/22 17:00 05/06/22 17:04 05/06/22 17:04 Temperature Pulse Rate 96 H 96 H Respiratory Rate Blood Pressure 85/58 L Pulse Oximetry 97 96 Oxygen Delivery Method 05/06/22 17:05 05/06/22 17:05 05/06/22 17:07 Temperature Pulse Rate 96 H 90 Respiratory Rate Blood Pressure 78/44 L Pulse Oximetry 97 Oxygen Delivery Method 05/06/22 17:07 05/06/22 17:30 Temperature Pulse Rate 97 H Respiratory Rate Blood Pressure 89/50 L 90/55 L Pulse Oximetry 96 Oxygen Delivery Method MDM - GI Bleed Differential Diagnosis Differential diagnosis: Likely esophageal varices, gastritis, Susan-Crabtree syndrome, Upper gastrointestinal hemorrhage and melena Lab Data Result diagrams: 05/07/22 18:06 05/07/22 01:30 Labs: Lab Results 05/06/22 05/06/22 05/06/22 Range/Units 14:23 14:23 14:23 WBC 9.1 (4.5-11.0) X10^3/uL RBC 3.72 L (4.5-5.9) X10^6/uL Hgb 11.2 L (13.5-17.5) g/dL Hct 33.2 L (41-53) % MCV 89.3 (80-100) fL MCH 30.2 (26-34) PG MCHC 33.8 (30-36) % RDW 15.8 H (11.6-14.8) % Plt Count 201 (150-400) X10^3/uL Neut % (Auto) 80.2 H (50-75) % Lymph % (Auto) 11.0 L (25-40) % [place] % (Auto) 7.9 (3-14) % Eos % (Auto) 0.3 L (2-4) % Baso % (Auto) 0.6 (0-2) % Neut # (Auto) 7300 H (1289-6828) /uL Lymph # (Auto) 1000 L (9061-0823) /uL [place] # (Auto) 700 (0-900) /uL Eos # (Auto) 0 (0-450) /uL Baso # (Auto) 100 (0-100) /uL PT 15.3 H (10.1-12.7) SECONDS INR 1.4 H (0.9-1.3) APTT 25 L D (26.4-36.2) SECONDS Sodium 136 L (137-145) mmol/L Potassium 4.8 (3.4-5.1) mmol/L Chloride 105 (98-107) mmol/L Carbon Dioxide 24 (22-32) mmol/L BUN 44 H (9-20) mg/dL Creatinine 1.02 (0.66-1.25) mg/dL Estimated GFR > 60 (>60) mL/min BUN/Creatinine Ratio 43.1 H (6-22) Glucose 193 H (80-110) mg/dL Calcium 9.1 (8.4-10.2) mg/dL Total Bilirubin 1.4 H (0.2-1.3) mg/dL AST 18 (17-59) IU/L ALT 12 (<50) IU/L Alkaline Phosphatase 49 (38-126) U/L Troponin I (0.01-0.034) ng/mL Total Protein 5.8 L (6.3-8.2) g/dL Albumin 3.5 (3.5-5.0) g/dL Globulin 2.3 (1.7-4.1) g/dL Albumin/Globulin Ratio 1.5 (1.0-2.8) SARS-CoV-2 (PCR) (Negative) Blood Type Antibody Screen Crossmatch 05/06/22 05/06/22 05/06/22 Range/Units 14:23 14:23 17:10 WBC (4.5-11.0) X10^3/uL RBC (4.5-5.9) X10^6/uL Hgb 9.7 L (13.5-17.5) g/dL Hct 28.1 L (41-53) % MCV (80-100) fL MCH (26-34) PG MCHC (30-36) % RDW (11.6-14.8) % Plt Count (150-400) X10^3/uL Neut % (Auto) (50-75) % Lymph % (Auto) (25-40) % [place] % (Auto) (3-14) % Eos % (Auto) (2-4) % Baso % (Auto) (0-2) % Neut # (Auto) (6007-4285) /uL Lymph # (Auto) (7594-3838) /uL [place] # (Auto) (0-900) /uL Eos # (Auto) (0-450) /uL Baso # (Auto) (0-100) /uL PT (10.1-12.7) SECONDS INR (0.9-1.3) APTT (26.4-36.2) SECONDS Sodium (137-145) mmol/L Potassium (3.4-5.1) mmol/L Chloride (98-107) mmol/L Carbon Dioxide (22-32) mmol/L BUN (9-20) mg/dL Creatinine (0.66-1.25) mg/dL Estimated GFR (>60) mL/min BUN/Creatinine Ratio (6-22) Glucose (80-110) mg/dL Calcium (8.4-10.2) mg/dL Total Bilirubin (0.2-1.3) mg/dL AST (17-59) IU/L ALT (<50) IU/L Alkaline Phosphatase (38-126) U/L Troponin I < 0.012 (0.01-0.034) ng/mL Total Protein (6.3-8.2) g/dL Albumin (3.5-5.0) g/dL Globulin (1.7-4.1) g/dL Albumin/Globulin Ratio (1.0-2.8) SARS-CoV-2 (PCR) (Negative) Blood Type A Positive Antibody Screen Negative Crossmatch See Detail 05/06/22 Range/Units 18:25 WBC (4.5-11.0) X10^3/uL RBC (4.5-5.9) X10^6/uL Hgb (13.5-17.5) g/dL Hct (41-53) % MCV (80-100) fL MCH (26-34) PG MCHC (30-36) % RDW (11.6-14.8) % Plt Count (150-400) X10^3/uL Neut % (Auto) (50-75) % Lymph % (Auto) (25-40) % [place] % (Auto) (3-14) % Eos % (Auto) (2-4) % Baso % (Auto) (0-2) % Neut # (Auto) (6945-2271) /uL Lymph # (Auto) (5904-7647) /uL [place] # (Auto) (0-900) /uL Eos # (Auto) (0-450) /uL Baso # (Auto) (0-100) /uL PT (10.1-12.7) SECONDS INR (0.9-1.3) APTT (26.4-36.2) SECONDS Sodium (137-145) mmol/L Potassium (3.4-5.1) mmol/L Chloride (98-107) mmol/L Carbon Dioxide (22-32) mmol/L BUN (9-20) mg/dL Creatinine (0.66-1.25) mg/dL Estimated GFR (>60) mL/min BUN/Creatinine Ratio (6-22) Glucose (80-110) mg/dL Calcium (8.4-10.2) mg/dL Total Bilirubin (0.2-1.3) mg/dL AST (17-59) IU/L ALT (<50) IU/L Alkaline Phosphatase (38-126) U/L Troponin I (0.01-0.034) ng/mL Total Protein (6.3-8.2) g/dL Albumin (3.5-5.0) g/dL Globulin (1.7-4.1) g/dL Albumin/Globulin Ratio (1.0-2.8) SARS-CoV-2 (PCR) Negative (Negative) Blood Type Antibody Screen Crossmatch ECG Data Interpretation: Sinus tachycardia rate [address] elevation or depression MDM Narrative Medical decision making narrative: Appropriate for admission for observation and possible endoscopy in the morning Critical Care Time Critical Care Time Attestation: Critical Care Time 35 minutes: Critical care time is separate from other billable procedures. This critical care time includes consultation with family and other consulting doctors, review of records, and interpretation of data from labs, EKGs, imaging, etc. Discharge Plan Departure Patient Disposition: Admitted As Inpatient Clinical Impression: Upper gastrointestinal hemorrhage Admit Date/Time: 05/06/22 18:35 Admit Provider: Les Elias
[2022-05-06] MEDS: SODIUM CHLORIDE 0.9% 1,000 ML 1000 ML IV (16:36)
[2022-05-06] MEDS: PANTOPRAZOLE 40 MG VIAL 80 MG IV (16:41)
[2022-05-06 17:27] LABS: Hematocrit 28.1 % (41-53); Hemoglobin 9.7 g/dL (13.5-17.5)
[2022-05-06] MEDS: ONDANSETRON 4 MG/2 ML INJ IV (18:23)
--- NOTE | 2022-05-06 18:29 | PC.NURSE ---
Patient was up to commode at 1800 for bowel movement and passed about 800-1000ml of dark red blood. He became pale and diaphoretic and had a near syncopal episode. Began dry heaving as well. was moved back to the bed by this EDRN and BG Degroot. Was placed in trendelenburg. Dr. Spain aware, PRBC's ordered for patient.
[2022-05-06 18:52] LABS: COVID19 -Nasal RAPID Negative (Negative)
[2022-05-06 18:57] LABS: Troponin I < 0.012 ng/mL (0.01-0.034)
--- NOTE | 2022-05-06 20:15 | P.HP_ITS ---
History of Present Illness History of Present Illness Date Patient Seen: 05/06/22 Time Patient Seen: 20:15 Chief complaint: Altered LOC- blood in stool/vomit- low HR Narrative: Dusty Novoa is an 86 y.o. male with a history of a CVA, cardiac stent placement as recent as September 2021 was brought in by his son complaints of fatigue, dark stool, nausea and vomiting. States this has never happened before. Denies fevers sweats or chills, difficulty breathing, chest pain, abdominal pain, upper lower extremity weakness or paresthesias. He takes asprin and clopidgrel. Baseline hemoglobin and hematocrit are 15.2 and 44% Patient is afebrile, blood pressure 90/51, heart rate 80, respiratory rate 18, oxygen saturation of 96% on room air he weighs 81.6 kg with a BMI of 25.7. Baseline hemoglobin and hematocrit is in the 15 and 44 in September of last year and today it was 11.2 and 33.2 at 2:00 p.m. and at 5:00 p.m. it dropped to 9.7 and 28.1 respectively. He was ordered for 2 units PRBC by the emergency department. Platelet count was 201. Sodium 136, glucose 193, total bilirubin was 1.4, COVID-19 PCR is negative. Family history was discussed with the patient and updated in the medical, family history and social history field below. Patient History Medical History (Updated 05/06/22 @ 20:29 by LITO Rand) Coronary artery disease with stable angina pectoris Family history of sudden cardiac (SCD) (05/29/11) H/O: CVA (cerebrovascular accident) Hx of myocardial infarction Hyperlipidemia Surgical History H/O repair of rotator cuff Hx of heart artery stent Family & Social History Family History Mother Cancer Sister Lung cancer metastatic to brain Cancer Father Myocardial infarction Brother Myocardial infarction Social History: household members spouse Safety & Behavioral: Feels Safe in Current Yes Environment Been Physically Hurt or No Threatened By a Person Tobacco & Substance use: Smoking Status Former smoker alcohol intake current alcohol intake frequency denies Substance Use Type does not use Meds Home Medications and Allergies Home Medications Medication Instructions Recorded Confirmed Type aspirin 81 mg tablet,delayed 81 mg PO DAILY 09/19/21 05/06/22 History release furosemide 20 mg tablet (Lasix) 10 mg PO QAM #30 tabs 09/22/21 05/06/22 Rx nitroglycerin 0.4 mg sublingual 0.4 mg sublingual [id number] PRN 09/22/21 05/06/22 Rx tablet (Nitrostat) Chest Pain #20 tabs sennosides 8.6 mg tablet (senna) 17.2 mg PO BEDTIME #60 tabs 09/22/21 05/06/22 Rx clopidogrel 75 mg tablet (Plavix) 75 mg PO DAILY 05/06/22 05/06/22 History isosorbide mononitrate 30 mg 30 mg PO DAILY 05/06/22 05/06/22 History tablet,extended release 24 hr lisinopril 10 mg tablet 15 mg PO DAILY 05/06/22 05/06/22 History mexiletine 150 mg capsule 1 cap PO TID 05/06/22 05/06/22 History pravastatin 40 mg tablet 40 mg PO BEDTIME 05/06/22 05/06/22 History spironolactone 25 mg tablet 12.5 mg PO DAILY 05/06/22 05/06/22 History tamsulosin 0.4 mg capsule 0.4 mg PO BEDTIME 05/06/22 05/06/22 History Allergies Allergy/AdvReac Type Severity Reaction Status Date / Time atorvastatin Allergy Verified 05/06/22 18:00 Beta-Blockers AdvReac Verified 05/06/22 18:00 (Beta-Adrenergic Bloc Review of Systems Review of Systems ROS: Yes All systems reviewed with the patient and are negative except as otherwise documented Exam Vital Signs (past 8 hours): - 05/06/22 14:10 05/06/22 16:11 05/06/22 16:11 Temperature 97.6 F Pulse Rate 99 H 78 Respiratory Rate 18 Blood Pressure 93/52 L 98/54 L Pulse Oximetry 98 97 Oxygen Delivery Method Room Air 05/06/22 16:30 05/06/22 16:30 05/06/22 17:00 Temperature Pulse Rate 93 H Respiratory Rate Blood Pressure 98/56 L 89/62 L Pulse Oximetry 98 Oxygen Delivery Method 05/06/22 17:00 05/06/22 17:04 05/06/22 17:04 Temperature Pulse Rate 96 H 96 H Respiratory Rate Blood Pressure 85/58 L Pulse Oximetry 97 96 Oxygen Delivery Method 05/06/22 17:05 05/06/22 17:05 05/06/22 17:07 Temperature Pulse Rate 96 H 90 Respiratory Rate Blood Pressure 78/44 L Pulse Oximetry 97 Oxygen Delivery Method 05/06/22 17:07 05/06/22 17:30 05/06/22 17:43 Temperature Pulse Rate 97 H 95 H Respiratory Rate Blood Pressure 89/50 L 90/55 L Pulse Oximetry 96 97 Oxygen Delivery Method 05/06/22 17:43 05/06/22 18:12 05/06/22 18:14 Temperature Pulse Rate Respiratory Rate Blood Pressure 90/55 L 115/53 L Pulse Oximetry 94 Oxygen Delivery Method 05/06/22 18:14 05/06/22 18:24 05/06/22 18:24 Temperature Pulse Rate 93 H 82 Respiratory Rate 16 12 Blood Pressure 87/50 L Pulse Oximetry 96 96 Oxygen Delivery Method 05/06/22 18:30 05/06/22 18:30 Temperature Pulse Rate 80 Respiratory Rate 18 Blood Pressure 90/51 L Pulse Oximetry 96 Oxygen Delivery Method Oxygen Delivery Method Room Air Narrative Exam Narrative: Gen: Alert, oriented, well-developed 86 y.o. male, appears fatigued HEENT: normocephalic, atraumatic, conjunctiva clear, sclera non-icteric, oral mucosa pink and moist Neck: supple, full ROM, no JVD, trachea is midline Resp: Lungs CTA, non-labored breathing CV: RRR, no murmur or rubs Abd: soft, non-tender, normoactive BTs Skin: no lesions or rashes, dry and intact Neuro: Alert and oriented X 4 w/no focal deficits. Speech clear and coherent. Extremities: moves all 4 extremities, is ambulatory, negative Tete?s sign Psyche: normal mood and affect. Objective Labs Result Diagrams: 05/06/22 17:10 05/06/22 14:23 Labs: Laboratory Results - last 24 hr 05/06/22 05/06/22 05/06/22 14:23 14:23 14:23 WBC 9.1 RBC 3.72 L Hgb 11.2 L Hct 33.2 L MCV 89.3 MCH 30.2 MCHC 33.8 RDW 15.8 H Plt Count 201 Neut % (Auto) 80.2 H Lymph % (Auto) 11.0 L [place] % (Auto) 7.9 Eos % (Auto) 0.3 L Baso % (Auto) 0.6 Neut # (Auto) 7300 H Lymph # (Auto) 1000 L [place] # (Auto) 700 Eos # (Auto) 0 Baso # (Auto) 100 PT 15.3 H INR 1.4 H APTT 25 L D Sodium 136 L Potassium 4.8 Chloride 105 Carbon Dioxide 24 BUN 44 H Creatinine 1.02 Estimated GFR > 60 BUN/Creatinine Ratio 43.1 H Glucose 193 H Calcium 9.1 Total Bilirubin 1.4 H AST 18 ALT 12 Alkaline Phosphatase 49 Troponin I Total Protein 5.8 L Albumin 3.5 Globulin 2.3 Albumin/Globulin Ratio 1.5 SARS-CoV-2 (PCR) Blood Type Antibody Screen Crossmatch 05/06/22 05/06/22 05/06/22 14:23 14:23 17:10 WBC RBC Hgb 9.7 L Hct 28.1 L MCV MCH MCHC RDW Plt Count Neut % (Auto) Lymph % (Auto) [place] % (Auto) Eos % (Auto) Baso % (Auto) Neut # (Auto) Lymph # (Auto) [place] # (Auto) Eos # (Auto) Baso # (Auto) PT INR APTT Sodium Potassium Chloride Carbon Dioxide BUN Creatinine Estimated GFR BUN/Creatinine Ratio Glucose Calcium Total Bilirubin AST ALT Alkaline Phosphatase Troponin I < 0.012 Total Protein Albumin Globulin Albumin/Globulin Ratio SARS-CoV-2 (PCR) Blood Type A Positive Antibody Screen Negative Crossmatch See Detail 05/06/22 18:25 WBC RBC Hgb Hct MCV MCH MCHC RDW Plt Count Neut % (Auto) Lymph % (Auto) [place] % (Auto) Eos % (Auto) Baso % (Auto) Neut # (Auto) Lymph # (Auto) [place] # (Auto) Eos # (Auto) Baso # (Auto) PT INR APTT Sodium Potassium Chloride Carbon Dioxide BUN Creatinine Estimated GFR BUN/Creatinine Ratio Glucose Calcium Total Bilirubin AST ALT Alkaline Phosphatase Troponin I Total Protein Albumin Globulin Albumin/Globulin Ratio SARS-CoV-2 (PCR) Negative Blood Type Antibody Screen Crossmatch Assessment & Plan Assessment & Plan narrative: Dusty Novoa is admitted for further evaluation and treatment of a suspected upper GI bleed. Suspected upper GI bleed * He will receive 2 units PRBC, H and H at midnight * Dr. Ortiz notified, plan to scope in the am * Plavix and ASA held Coronary artery disease, chronic * He had stents placed in 2005 as well as 2020 and his oracle fusion consultant is Dr. Villatoro in [place] * Currently on an RENE-inhibitor but not on a beta-osmar or due to chronic sinus bradycardia * Continue isosorbide mononitrate * He has an intolerance to atorvastatin but takes pravastatin Chronic atrial fibrillation * Telemetry * Rhythm and rate controlled with Mexiletine VTE Prophylaxis: Wells risk score 0 pharmacological anticoagulation contraindicated in the setting of probable active GI bleeding X Bilateral SCDs Patient is admitted to the inpatient service due to the severity of disease, risks of further disease progression and this stay is expected to exceed 2 midnights. FEN: IV fluids: saline lock, diet: heart healthy, labs: CBC, C/BMP, liver enzymes, Mag, PT/INR Consultants Dr. Ortiz, General Surgery, care and involvement in the patient?s care is appreciated. Dispo: unknown at this time Code status: DNR/DNI as discussed with the patient who identifies son his surrogate and POA. [X] I have utilized all available immediate resources to obtain, update, or review of the patient's current medications COVID-19 COVID-19 status: Negative Scores CHADS-VASc Congestive heart failure: yes Hypertension: yes Age 75 years or older: yes Diabetes mellitus: no Stroke, TIA, or TE: yes Vascular disease: yes Age 65 to 74 years: no Sex category (female): Male CHADS-VASc Score: 7 Wells' Criteria for PE Clinical signs and symptoms of DVT: No PE is #1 Dx or equally likely: No Heart rate > 100: No Immobilization at least 3 days or surg in previous 4 weeks: No History of PE or DVT: No Hemoptysis: No Malignancy w/Treatment within 6 months or palliative: No Wells' PE Score total: 0 Quality VTE Deep Vein Thrombosis/Pulmonary Embolism Present on Admission: No MIPS - Admit I confirm the patient?s Advance Care Plan is present, Code status is documented, Surrogate decision maker is in patient?s record [If Yes, STOP here]: Yes MIPS - DC The patient has current or prior documentation of left ventricular ejection fraction (LVEF) less than 40%, or moderate or severely depressed left ventricular systolic function.: Yes A. The patient was prescribed or already taking an Angiotensin-Converting Enzyme (RENE) Inhibitor, or Angiotensin Receptor Osmar (ARB).: Yes B. The patient was prescribed or already taking a beta-osmar. [If Yes to Both A & B, STOP here]: No Patient not prescribed/taking Beta-osmar for medical/patient/system reason(s) including (ex: allergy, intolerance, contraindication).: contraindicated due to sinus bradycardia
[2022-05-06] MEDS: SODIUM CHLORIDE 0.9% FLUSH 10 ML IV (21:15)
[2022-05-06] MEDS: PANTOPRAZOLE 40 MG VIAL IV (21:15)
[2022-05-07] VITALS (32 sets, daily range): BP systolic 89–120; BP diastolic 49–69; PULSE 20–83; RESP 10–26; TEMP 35.8–36.8; O2SAT 95–98; BMI 24.4
--- NOTE | 2022-05-07 | PATH_ITS ---
[facility] Accession Number: [id number] No. of containers..02 Tissue . 01 Material submitted: . PART A: duodenum - DUODENUM POLYPS PART B: gastrointestinal site - ANTRUM BIOPSY . 01 Clinical history: . ALTERED LOC- BLOOD IN STOOL/VOMIT - LOW HR . 01 Diagnosis: A. Designated Duodenal Polyps, Biopsies: Duodenal mucosa with no diagnostic abnormality. Negative for active inflammation, features of sprue, dysplasia, or malignancy. Additional step-sections examined. . B. Gastric Antrum, Biopsy: Helicobacter pylori gastritis with intestinal metaplasia. Intestinal metaplasia present in 4 of 4 biopsy fragments. Abundant forms morphologically consistent with Helicobacter pylori seen on H/E stain. Negative for dysplasia or malignancy. [facility] [place] 05/12/2022 1140 Local . 01 Electronically signed: . Abdi Wilson MD, PhD, Pathologist NPI- [id number] . 01 Gross description: . Part A: DUODENUM POLYPS: Received in formalin are 2 fragment(s) of morgan, soft tissue measuring 0.2 x 0.2 x 0.2 cm to 0.3 x 0.3 x 0.3 cm submitted entirely in 1 cassette(s) Part B: ANTRUM BIOPSY: Received in formalin are 4 fragment(s) of morgan, soft tissue measuring 0.1 x 0.1 x 0.1 cm to 0.3 x 0.2 x 0.2 cm submitted entirely in 1 cassette(s) /[facility] 05/08/2022 0156 Local . 01 Pathologist provided ICD-10: K31.7, K31.9, K29.70, B96.81 . 01 CPT . 871639, 587764 Specimen Comment: A courtesy copy of this report has been sent to [phone] Performed at: 01 [facility] Cytology [address] [facility], [place], [place] [id number] MD Pj Rivas MD Phone: [phone]
[2022-05-07 01:43] LABS: Add Manual Diff / Slide Review NO; Basophils Absolute Auto 100 /uL (0-100); Basophils Percent Auto 0.7 % (0-2); Eosinophils Absolute Auto 0 /uL (0-450); Eosinophils Percent Auto 0.1 % (2-4); Hemoglobin 11.1 g/dL (13.5-17.5); Lymphocytes Absolute Auto 1100 /uL (1100-4500); Lymphocytes Percent Auto 12.3 % (25-40); Mean Corpuscular HGB Conc 35.2 % (30-36); Mean Corpuscular Hemoglobin 30.7 PG (26-34); Mean Corpuscular Volume 87.3 fL (80-100); Monocytes Absolute Auto 800 /uL (0-900); Monocytes Percent Auto 9.2 % (3-14); Neutrophils Absolute Auto 6700 /uL (1500-7000); Neutrophils Percent Auto 77.7 % (50-75); Platelet Count 143 X10^3/uL (150-400); Red Blood Cell Count 3.62 X10^6/uL (4.5-5.9); Red Cell Distribution Width 15.3 % (11.6-14.8); White Blood Cell Count 8.7 X10^3/uL (4.5-11.0)
[2022-05-07 01:48] LABS: Hematocrit 31.6 % (41-53)
[2022-05-07 01:57] LABS: Alanine Aminotransferase 9 IU/L (<50); Albumin 2.8 g/dL (3.5-5.0); Albumin Globulin Ratio 1.3 (1.0-2.8); Alkaline Phosphatase 37 U/L (38-126); Aspartate Aminotransferase 16 IU/L (17-59); BUN Creatinine Ratio 52.7 (6-22); Bilirubin Total 1.6 mg/dL (0.2-1.3); Blood Urea Nitrogen 49 mg/dL (9-20); Calcium 8.4 mg/dL (8.4-10.2); Carbon Dioxide 20 mmol/L (22-32); Chloride 111 mmol/L (98-107); Estimated Glomerular Filt Rate > 60 mL/min (>60); Globulin 2.1 g/dL (1.7-4.1); Glucose 125 mg/dL (80-110); HEMOLYSIS < 15 (0-50); Sodium 138 mmol/L (137-145); Total Protein 4.9 g/dL (6.3-8.2)
--- NOTE | 2022-05-07 06:09 | PC.NURSE ---
Military Analyst Note-Patient admitted to ICU Room 230 at 1930. Fatigued, oriented x3, LOS COYOTES, had moderate coffee-ground emesis in elevator, denies pain. Initial BP 85/51(64) SR 70s-80s, RR 20, SpO2 >95% on RA, afebrile. Tolerated 2 units PRBCs, no more emesis or stools, brief has been dry, voiding with urinal. NPO. H/H 11.1/31.6 post transfusion. BP now 90s-100s/50s MAP 70s.
[2022-05-07] MEDS: SODIUM CHLORIDE 0.9% FLUSH 10 ML IV (09:12)
[2022-05-07] MEDS: PANTOPRAZOLE 40 MG VIAL IV (09:12)
--- NOTE | 2022-05-07 10:35 | PC.NURSE ---
Addendum entered by Chelita Colunga R.N. 05/07/22 17:46: 1730 Pt arrived back to room in bed, VSS, no c/o pain or nausea, Dr Elias at bedside, awaiting orders, bed low and locked, call light within reach will continue to monitor Addendum entered by Chelita Colunga R.N. 05/07/22 15:24: 1530 Pt taken to surgery, no futher contact at this time Original Note: Son brought in a copy of POLST form
--- NOTE | 2022-05-07 13:22 | CM.DANOTE ---
DCP Assessment: Payor: Medicare PCP: MD Hilton Pt is a 86 y.o. M who presented to the ED following blood in stool and coffee ground emesis. Pt has a PMH of CAD, family hx of sudden cardiac , h/o of CVA, myocardial infarction and hyperlipdemia. Pt admitted to the floor for scope procedure. DCP met with pt bedside this afternoon. Pt sitting up in bed watching TV. DCP introduced self and role. Pt states that his son, Rodney, is POA and is responsible for all communication. Pt states that he lives with his in a 2 story house in [place]. Pt states that he still drives POV and declines any DME use. Pt states that his son helps him and his with doctors appointments and other things that come up. Pt declines any use for resources at this time. Depending on outcome of scope, could get discharged tomorrow. DCP does not identify any needs at this time. White board updated and instructed pt to call. P: Pt to have scope procedure today @ 4pm. Once pt is deemed medically stable, pt to discharge home via son POV. Kelly Berry RN/MADONNAP Discharge Planning/Care Management Advanced directive, confirm from FAMILY Start: 05/07/22 09:50 Freq: Q24H Status: Complete Protocol: Document 05/07/22 09:50 MS (Rec: 05/07/22 09:51 MS [id number]) Advance Directive, confirm on record Time 09:51 Person contacted Rodney (son) Copy received No Document 05/07/22 10:38 MS (Rec: 05/07/22 10:38 MS [id number]) Advance Directive, confirm on record Time 09:51 Person contacted Rodney (son) Copy received No Time 10:38 Person contacted Rodney (son) Copy received Yes Advanced directive available on record Yes CM Discharge Assessment Start: 05/07/22 12:42 Freq: Status: Active Protocol: Document 05/07/22 12:42 JANE (Rec: 05/07/22 12:43 AJ [id number]) Discharge Planning Assessment Assigned Can Repairer Kelly Berry RN/MADONNAP Advance Directives? Yes Advance Directives on File No History Provided By Patient,Medical Record Prior Living Arrangements House Household Members spouse Type of transporation used prior to Drives own vehicle admit Independent with ADL's Yes Is patient alert and oriented? Yes Discharge Plan Home Transportation Arrangement Son Referrals Initiated None needed Additional Comment At this time Whiteboard Updated in Patient Room with Yes name and ext. # of Can Repairer Comment Instructed to call Review Status In Process Please Provide Date Initial DC 05/07/22 Assessment Was Performed Next Review Type Continued Stay Review
--- NOTE | 2022-05-07 16:58 | PM.OP.EGD ---
Operative Date/Time/Diagnoses Date of procedure: 05/07/22 Time of procedure: 16:58 Pre-op diagnosis: GI bleed Post-op diagnosis: same Procedure & Clinicians Study performed: Esophagogastroduodenoscopy with MAC Same procedure as scheduled: Yes Surgeon: Wagner Ortiz Procedure Notes Procedure in detail: Surgeon: Wagner Ortiz MD A timeout was performed. Topical lidocaine was administered to the posterior oropharynx. A bite blocked was placed. Mac was administered by Dr. Tompkins in the supine position. The endoscope was inserted through the bite block and passed through the esophagus and stomach and into the duodenum. There were few small polypoid lesions in the duodenum which were biopsied with cold forceps. The scope was withdrawn into the duodenal bulb and no abnormalities were observed. The scope was withdrawn into the stomach. There were some mild ulcers near the antrum with no signs of active or recent bleeding. Random biopsies were taken from the antrum. The rest of the stomach was normal. The scope was retroflexed and a very small hiatal hernia was observed. The scope was withdrawn into the esophagus and no abnormalities were noted. The remainder of the esophagus was normal. The scope was withdrawn. The patient was awakened and brought to recovery. Findings: Shallow ulcers in the antrum with no stigmata of recent or active bleeding Impression: Recommend discontinuation of any nonessential anticoagulation or antiplatelet agents
--- NOTE | 2022-05-07 17:02 | P.CONS_ITS ---
History of Present Illness Consult details Date Patient Seen: 05/07/22 Time Patient Seen: 17:02 Chief complaint: Altered LOC- blood in stool/vomit- low HR Narrative: Dusty is an 86-year-old man who presented to the emergency department yesterday with melena and hematemesis. His hemoglobin decreased from 11-9 and he was transfused 2 units of blood with a return of his hemoglobin to 11 this morning. He had a colonoscopy many years ago and is not exactly sure how long it has been. Meds Home Medications and Allergies Home Medications Medication Instructions Recorded Confirmed Type aspirin 81 mg tablet,delayed 81 mg PO DAILY 09/19/21 05/06/22 History release furosemide 20 mg tablet (Lasix) 10 mg PO QAM #30 tabs 09/22/21 05/06/22 Rx nitroglycerin 0.4 mg sublingual 0.4 mg sublingual [id number] PRN 09/22/21 05/06/22 Rx tablet (Nitrostat) Chest Pain #20 tabs sennosides 8.6 mg tablet (senna) 17.2 mg PO BEDTIME #60 tabs 09/22/21 05/06/22 Rx clopidogrel 75 mg tablet (Plavix) 75 mg PO DAILY 05/06/22 05/06/22 History isosorbide mononitrate 30 mg 30 mg PO DAILY 05/06/22 05/06/22 History tablet,extended release 24 hr lisinopril 10 mg tablet 15 mg PO DAILY 05/06/22 05/06/22 History mexiletine 150 mg capsule 1 cap PO TID 05/06/22 05/06/22 History pravastatin 40 mg tablet 40 mg PO BEDTIME 05/06/22 05/06/22 History spironolactone 25 mg tablet 12.5 mg PO DAILY 05/06/22 05/06/22 History tamsulosin 0.4 mg capsule 0.4 mg PO BEDTIME 05/06/22 05/06/22 History Allergies Allergy/AdvReac Type Severity Reaction Status Date / Time atorvastatin Allergy Verified 05/06/22 18:00 Beta-Blockers AdvReac Verified 05/06/22 18:00 (Beta-Adrenergic Bloc Exam Vital Signs (past 8 hours): - 05/07/22 09:30 05/07/22 10:00 05/07/22 10:00 Temperature Pulse Rate 67 67 Respiratory Rate 20 20 Blood Pressure 114/56 L Pulse Oximetry 97 96 Oxygen Delivery Method Oxygen Flow Rate 05/07/22 10:30 05/07/22 11:00 05/07/22 15:00 Temperature 98.3 F Pulse Rate 71 20 L Respiratory Rate 20 20 Blood Pressure 114/58 L Pulse Oximetry 97 96 95 Oxygen Delivery Method Room Air Oxygen Flow Rate 0 05/07/22 15:00 05/07/22 15:00 Temperature 98.3 F Pulse Rate Respiratory Rate 15 Blood Pressure 114/58 L Pulse Oximetry 95 95 Oxygen Delivery Method Room Air Room Air Oxygen Flow Rate Oxygen Delivery Method Room Air Oxygen Flow Rate 0 Const General: No acute distress Resp Effort & Inspection: normal respiratory effort Objective Labs Result Diagrams: 05/07/22 01:30 05/07/22 01:30 Labs: Laboratory Results - last 24 hr 05/06/22 05/06/22 05/06/22 14:23 14:23 17:10 WBC RBC Hgb 9.7 L Hct 28.1 L MCV MCH MCHC RDW Plt Count Neut % (Auto) Lymph % (Auto) [place] % (Auto) Eos % (Auto) Baso % (Auto) Neut # (Auto) Lymph # (Auto) [place] # (Auto) Eos # (Auto) Baso # (Auto) Sodium Potassium Chloride Carbon Dioxide BUN Creatinine Estimated GFR BUN/Creatinine Ratio Glucose Calcium Total Bilirubin AST ALT Alkaline Phosphatase Troponin I < 0.012 Total Protein Albumin Globulin Albumin/Globulin Ratio Nasal Screen MRSA (PCR) SARS-CoV-2 (PCR) Blood Type A Positive Antibody Screen Negative Crossmatch See Detail 05/06/22 05/06/22 05/07/22 18:25 19:30 01:30 WBC 8.7 RBC 3.62 L Hgb 11.1 L Hct 31.6 L MCV 87.3 MCH 30.7 MCHC 35.2 RDW 15.3 H Plt Count 143 L Neut % (Auto) 77.7 H Lymph % (Auto) 12.3 L [place] % (Auto) 9.2 Eos % (Auto) 0.1 L Baso % (Auto) 0.7 Neut # (Auto) 6700 Lymph # (Auto) 1100 [place] # (Auto) 800 Eos # (Auto) 0 Baso # (Auto) 100 Sodium Potassium Chloride Carbon Dioxide BUN Creatinine Estimated GFR BUN/Creatinine Ratio Glucose Calcium Total Bilirubin AST ALT Alkaline Phosphatase Troponin I Total Protein Albumin Globulin Albumin/Globulin Ratio Nasal Screen MRSA (PCR) Negative for mrsa SARS-CoV-2 (PCR) Negative Blood Type Antibody Screen Crossmatch 05/07/22 01:30 WBC RBC Hgb Hct MCV MCH MCHC RDW Plt Count Neut % (Auto) Lymph % (Auto) [place] % (Auto) Eos % (Auto) Baso % (Auto) Neut # (Auto) Lymph # (Auto) [place] # (Auto) Eos # (Auto) Baso # (Auto) Sodium 138 Potassium 5.0 Chloride 111 H Carbon Dioxide 20 L BUN 49 H Creatinine 0.93 Estimated GFR > 60 BUN/Creatinine Ratio 52.7 H Glucose 125 H Calcium 8.4 Total Bilirubin 1.6 H AST 16 L ALT 9 Alkaline Phosphatase 37 L Troponin I Total Protein 4.9 L Albumin 2.8 L Globulin 2.1 Albumin/Globulin Ratio 1.3 Nasal Screen MRSA (PCR) SARS-CoV-2 (PCR) Blood Type Antibody Screen Crossmatch [facility] Medical History (Updated 05/07/22 @ 17:03 by Wagner Ortiz MD) Coronary artery disease with stable angina pectoris Family history of sudden cardiac (SCD) (05/29/11) H/O: CVA (cerebrovascular accident) Hx of myocardial infarction Hyperlipidemia Surgical History H/O repair of rotator cuff Hx of heart artery stent Family History Mother Cancer Sister Lung cancer metastatic to brain Cancer Father Myocardial infarction Brother Myocardial infarction Social History household members: spouse Tobacco & Substance Use Smoking Status: Former smoker alcohol intake: current Assessment & Plan Assessment and plan (1) Melena: Status: Acute Plan Risks and benefits of EGD with monitored anesthesia reviewed. He would like to proceed. Time Spent With Patient Critical Care time: I spent a total of [] minutes of critical care time on this patient's care today; this time is exclusive of procedural time.
--- NOTE | 2022-05-07 17:23 | SUR.PHASEI ---
Pt A&Ox4, denies any distress, VSS, and ready to transfer to room. Report given to receiving RN using SBAR with time allowed for questions. Pt returned to room via bed with this RN's assist. Handoff to receiving RN.
[2022-05-07 18:13] LABS: Hematocrit 31.8 % (41-53); Hemoglobin 11.1 g/dL (13.5-17.5)
--- NOTE | 2022-05-07 18:33 | PM.DS.1 ---
History of Present Illness History of Present Illness Date Patient Seen: 05/07/22 Time Patient Seen: 18:33 Chief complaint: Altered LOC- blood in stool/vomit- low HR Narrative: Dusty Novoa is an 86 y.o. male with a history of a CVA, cardiac stent placement as recent as September 2021 was brought in by his son complaints of fatigue, dark stool, nausea and vomiting. States this has never happened before. Denies fevers sweats or chills, difficulty breathing, chest pain, abdominal pain, upper lower extremity weakness or paresthesias. He takes asprin and clopidgrel. Baseline hemoglobin and hematocrit are 15.2 and 44% Patient is afebrile, blood pressure 90/51, heart rate 80, respiratory rate 18, oxygen saturation of 96% on room air he weighs 81.6 kg with a BMI of 25.7. Baseline hemoglobin and hematocrit is in the 15 and 44 in September of last year and today it was 11.2 and 33.2 at 2:00 p.m. and at 5:00 p.m. it dropped to 9.7 and 28.1 respectively. He was ordered for 2 units PRBC by the emergency department. Platelet count was 201. Sodium 136, glucose 193, total bilirubin was 1.4, COVID-19 PCR is negative. Family history was discussed with the patient and updated in the medical, family history and social history field below. Discharge Providers Provider Date of admission: 05/06/22 18:35 Discharge Date: 05/07/22 Primary care physician: Marcie Canela MD Consults: 05/07/22 07:59 Consult to General Surgery Routine Comment: Consulting Provider: Wagner Ortiz Reason for consultation: GI bleeding Discharge provider: Les Elias DO Summary Hospital Course Discharge Diagnosis: Acute blood loss anemia secondary to gastric ulcer Coronary artery disease, chronic Chronic systolic heart failure HLD Hospital Course: This is an 86-year-old male the past medical history of CAD, chronic systolic heart failure, and hyperlipidemia who presented with melena. His initial hemoglobin dropped quite rapidly and he was mildly hypotensive. He was admitted to the ICU given 2 units of blood, but then stabilized during the course of his transfusions. He was initiated on IV Protonix twice daily and underwent EGD the following day which showed a small gastric ulcer without stigmata of recent bleeding. The patient was feeling well and the evening after his EGD his hemoglobin had remained stable and he had had no further bowel movements. He improved much more quickly than expected. He wanted to discharge home. He was counseled on return precautions including hematemesis or return of his dark stools, though these may continue for a few days as an outpatient. Given that his recent stents were more than 6 months ago and his current GI bleeding I recommended that he stop his aspirin and Plavix, and these potentially may be able to be resumed in the near future at the discretion of his primary care provider. He was started on twice daily Protonix for at least 4 weeks, with further continuation at the discretion of his primary care provider as well. Time Spent with Patient Time spent: Greater than 30 minutes Exam Vital Signs (past 8 hours): - 05/07/22 11:00 05/07/22 15:00 05/07/22 15:00 Temperature 98.3 F Pulse Rate 20 L Respiratory Rate 20 Blood Pressure 114/58 L Pulse Oximetry 96 95 95 Oxygen Delivery Method Room Air Room Air Oxygen Flow Rate 0 05/07/22 15:00 05/07/22 17:07 05/07/22 17:12 Temperature 98.3 F 98.1 F Pulse Rate 82 81 Respiratory Rate 15 10 L 15 Blood Pressure 114/58 L 101/49 L 102/56 L Pulse Oximetry 95 95 96 Oxygen Delivery Method Room Air Nasal Cannula Nasal Cannula Oxygen Flow Rate 2 05/07/22 17:17 05/07/22 17:22 05/07/22 17:30 Temperature 98.2 F Pulse Rate 83 80 83 Respiratory Rate 22 20 18 Blood Pressure 94/59 L 108/58 L Pulse Oximetry 97 96 96 Oxygen Delivery Method Nasal Cannula Nasal Cannula Oxygen Flow Rate 2 2 0 05/07/22 18:00 Temperature 98.2 F Pulse Rate 80 Respiratory Rate 22 Blood Pressure 99/69 Pulse Oximetry 98 Oxygen Delivery Method Oxygen Flow Rate 0 Oxygen Delivery Method Nasal Cannula Oxygen Flow Rate 0 Narrative Exam Narrative: General:? Patient is well developed and well nourished, in no distress at this time. HEENT:? Normocephalic, atraumatic, extraocular muscles intact, oral pharynx is clear and mucous membranes are moist. Neck: supple and symmetric, trachea is midline, no cervical adenopathy. Negative for JVD Chest:? Normal AP diameter and contour without kyphoscoliosis, no tachypnea, equal chest rise bilaterally. Lungs:? CTA b/l no wheezing rhonchi or rales. Cardio:?RRR no m/r/g. Abdomen: S NT ND. No CVA tenderness. Musculoskeletal:? Muscle strength and tone are equal within normal limits, no deformity. Extremities: No edema or joint effusions. No cyanosis or clubbing. Skin:? Pale,? Warm to touch,dry and intact without rashes, ulcerations or petechiae.? Neuro:? Alert and orientated x3,? sensation to touch intact in all extremities, no gross deficits noted of cranial nerves. Psych:? Patient has a well-kept appearance, appropriate affect, mental status attitude thought context and judgment are appropriate for age. Objective Labs Result Diagrams: 05/07/22 18:06 05/07/22 01:30 Labs: Laboratory Results - last 24 hr 05/06/22 05/06/22 05/06/22 14:23 14:23 18:25 WBC RBC Hgb Hct MCV MCH MCHC RDW Plt Count Neut % (Auto) Lymph % (Auto) [place] % (Auto) Eos % (Auto) Baso % (Auto) Neut # (Auto) Lymph # (Auto) [place] # (Auto) Eos # (Auto) Baso # (Auto) Sodium Potassium Chloride Carbon Dioxide BUN Creatinine Estimated GFR BUN/Creatinine Ratio Glucose Calcium Total Bilirubin AST ALT Alkaline Phosphatase Troponin I < 0.012 Total Protein Albumin Globulin Albumin/Globulin Ratio Nasal Screen MRSA (PCR) SARS-CoV-2 (PCR) Negative Blood Type A Positive Antibody Screen Negative Crossmatch See Detail 05/06/22 05/07/22 05/07/22 19:30 01:30 01:30 WBC 8.7 RBC 3.62 L Hgb 11.1 L Hct 31.6 L MCV 87.3 MCH 30.7 MCHC 35.2 RDW 15.3 H Plt Count 143 L Neut % (Auto) 77.7 H Lymph % (Auto) 12.3 L [place] % (Auto) 9.2 Eos % (Auto) 0.1 L Baso % (Auto) 0.7 Neut # (Auto) 6700 Lymph # (Auto) 1100 [place] # (Auto) 800 Eos # (Auto) 0 Baso # (Auto) 100 Sodium 138 Potassium 5.0 Chloride 111 H Carbon Dioxide 20 L BUN 49 H Creatinine 0.93 Estimated GFR > 60 BUN/Creatinine Ratio 52.7 H Glucose 125 H Calcium 8.4 Total Bilirubin 1.6 H AST 16 L ALT 9 Alkaline Phosphatase 37 L Troponin I Total Protein 4.9 L Albumin 2.8 L Globulin 2.1 Albumin/Globulin Ratio 1.3 Nasal Screen MRSA (PCR) Negative for mrsa SARS-CoV-2 (PCR) Blood Type Antibody Screen Crossmatch 05/07/22 18:06 WBC RBC Hgb 11.1 L Hct 31.8 L MCV MCH MCHC RDW Plt Count Neut % (Auto) Lymph % (Auto) [place] % (Auto) Eos % (Auto) Baso % (Auto) Neut # (Auto) Lymph # (Auto) [place] # (Auto) Eos # (Auto) Baso # (Auto) Sodium Potassium Chloride Carbon Dioxide BUN Creatinine Estimated GFR BUN/Creatinine Ratio Glucose Calcium Total Bilirubin AST ALT Alkaline Phosphatase Troponin I Total Protein Albumin Globulin Albumin/Globulin Ratio Nasal Screen MRSA (PCR) SARS-CoV-2 (PCR) Blood Type Antibody Screen Crossmatch [facility] Medical History (Updated 05/07/22 @ 17:03 by Wagner Ortiz MD) Coronary artery disease with stable angina pectoris Family history of sudden cardiac (SCD) (05/29/11) H/O: CVA (cerebrovascular accident) Hx of myocardial infarction Hyperlipidemia Surgical History H/O repair of rotator cuff Hx of heart artery stent Family History Mother Cancer Sister Lung cancer metastatic to brain Cancer Father Myocardial infarction Brother Myocardial infarction Social History household members: spouse Smoking Status: Former smoker alcohol intake: current Discharge Plan Discharge Plan Patient Disposition: Home Provider Discharge Comment: You were admitted to the hospital with gastric bleeding, you were found to have a small ulcer in your stomach. For now please stop your aspirin and plavix, these may be able to be resumed shortly at the discretion of your primary care provider. You are being started on a medication for acid reduction in your stomach to help it heal. This will need to be continued for approximately 1 month, and you may need therapy beyond that time at the discretion of your PCP. No other medication changes are recommended. Discharge orders & Medications Prescriptions: Continued sennosides [senna] 8.6 mg Tablet 17.2 mg PO BEDTIME Qty: 60 0RF nitroglycerin [Nitrostat] 0.4 mg Tablet, Sublingual 0.4 mg sublingual [id number] PRN (Reason: Chest Pain) Qty: 20 0RF furosemide [Lasix] 20 mg tablet 10 mg PO QAM Qty: 30 0RF pravastatin 40 mg Tablet 40 mg PO BEDTIME isosorbide mononitrate 30 mg Tablet Extended Release 24 Hr 30 mg PO DAILY spironolactone 25 mg tablet 12.5 mg PO DAILY Label Comments: take 1/2 tablet by mouth once daily tamsulosin 0.4 mg Capsule 0.4 mg PO BEDTIME mexiletine 150 mg capsule 1 cap PO TID Label Comments: take 1 capsule by mouth three times a day with food lisinopril 10 mg tablet 15 mg PO DAILY Discontinued aspirin 81 mg Tablet,Delayed Release (Dr/Ec) 81 mg PO DAILY clopidogrel [Plavix] 75 mg Tablet 75 mg PO DAILY Follow up/Referrals: Marcie Canela MD [Primary Care Provider] - Diet/Activity/Treatments Diet: Diet as Tolerated Activity: As tolerated Discharge Data Primary Care Provider: Marcie Canela Quality VTE Deep Vein Thrombosis/Pulmonary Embolism Present on Admission: No
== END 2022-05-07 19:20 | disposition home or self-care (01) | DRG 378 ==
LOC: ED 18:25 → ICU 18:51
PROVIDERS: Surgery; Admitting Provider Internal Medicine; Emergency Provider Emergency Medicine; Family Provider Internal Medicine; PCP Internal Medicine; Referring Provider Emergency Medicine; Visit Provider Internal Medicine
PROC: 0DJ08ZZ Inspection of Upper Intestinal Tract, Via Natural or Artificial Opening Endoscopic (ICD-10-PCS; CPT 43235; principal; 2022-05-07 16:15)
DX: K25.4 Chronic or unspecified gastric ulcer with hemorrhage (principal); D62 Acute posthemorrhagic anemia; I48.20 Chronic atrial fibrillation, unspecified; I50.22 Chronic systolic (congestive) heart failure; I25.10 Atherosclerotic heart disease of native coronary artery without angina pectoris; E78.5 Hyperlipidemia, unspecified; Z20.822 Contact with and (suspected) exposure to COVID-19; Z66 Do not resuscitate; Z87.891 Personal history of nicotine dependence; Z95.5 Presence of coronary angioplasty implant and graft
CPT/HCPCS: 36415; 36430; 43239; 80053; 84484; 85014; 85018; 85025; 85610; 85730; 86850; 86900; 86901; 87635; 87797; 93005; 93010; 96374; 96375; 99232; 99284; 99291; C9803; P9016; C9113; J2405; J2704

== ENCOUNTER → 2024-04-10 14:37 | Outpatient (CLI) | payer MEDICARE, SELFPAY ==
[2022-05-06 21:04] VITALS: BMI 24.4
--- NOTE | 2024-04-10 14:40 | DI.RAD.S_ITS ---
PROCEDURE: XR HIP W PEL IF DONE LT 2V INDICATIONS: LT HIP PAIN TECHNIQUE: 2 views of the hip were acquired. COMPARISON: None. FINDINGS: Bones: No fractures or dislocations. No suspicious bony lesions. The visualized pelvic ring appears intact. Nonuniform joint space narrowing and osteophytic lipping of the acetabuli. Subchondral sclerosis and cystic change, left greater than right. Soft tissues: No suspicious soft tissue calcifications or masses. 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 Dictated by: Gumaro Alvarado M.D. on 04/10/2024 at 15:55 Approved by: Gumaro Alvarado M.D. on 04/10/2024 at 15:56
== END ==
PROVIDERS: Referring Provider Physician Assistant; Visit Provider Physician Assistant
DX: M16.0 Bilateral primary osteoarthritis of hip (principal); M25.552 Pain in left hip
CPT/HCPCS: 73502